=== PATIENT | female | born 1980 | race Caucasian/White ===

== ENCOUNTER 2021-03-20 07:17 | Outpatient (REF) | payer OTHER, SELFPAY ==
--- NOTE | ~2021-03-20 | XR_ITS ---
EXAMINATION: XR ABDOMEN KUB CLINICAL INDICATION: Calculus of kidney with calculus of the ureter. COMPARISON: None TECHNIQUE: AP view of the abdomen. FINDINGS: There is moderate stool seen in colon without distention. There are punctate 4 mm radiopaque calcification in the midpole right kidney suspected. No additional radiopaque density seen. There is no organomegaly. The bones are unremarkable XR/XR KUB IMPRESSION: Suspect 4 mm radiopaque calculi overlying the midpole right kidney. Mild constipation.
== END 2021-03-20 07:18 | disposition home or self-care (01) ==
LOC: HO.XRAY 07:17
PROVIDERS: PCP Family Medicine; Visit Provider Urology
DX: N20.2 Calculus of kidney with calculus of ureter (principal)
CPT/HCPCS: 74018

== ENCOUNTER 2021-04-27 08:00 | Outpatient (REF) | payer OTHER, SELFPAY ==
[2021-04-27 08:37] LABS: MANUAL DIFF FLAG NO
[2021-04-27 08:40] LABS: Basophils Absolute Auto 0.1 X10*3/uL (0.0-0.2); Basophils Percent Auto 0.9 % (0-2); Eosinophils Absolute Auto 0.2 X10*3/uL (0.0-0.4); Eosinophils Percent Auto 3.2 % (0-4); Hematocrit 40.3 % (37-47); Hemoglobin 13.4 g/dl (12.0-16.0); Imm Gran Abs Auto 0.01 X10*3/uL (0.00-0.03); Imm Gran Pct Auto 0.2 % (0.0-0.4); Lymphocytes Absolute Auto 1.9 X10*3/uL (1.2-4.9); Mean Corpuscular HGB Conc 33.3 g/dl (31.0-35.0); Mean Corpuscular Hemoglobin 28.4 pg (27.0-33.0); Mean Corpuscular Volume 85.4 fL (80-98); Mean Platelet Volume 9.3 fL (9.4-12.3); Monocytes Absolute Auto 0.4 X10*3/uL (0.1-1.2); Monocytes Percent Auto 6.9 % (2-11); Neutrophils Absolute Auto 3.2 X10*3/uL (2.0-8.3); Neutrophils Percent Auto 55.8 % (45-73); Platelet Count 257 X10*3/uL (160-400); Red Blood Count 4.72 X10*6/uL (4.20-5.50); Red Cell Distribution Width 12.2 % (11.0-16.0); White Blood Count 5.7 X10*3/uL (4.8-10.8)
[2021-04-27 08:53] LABS: Glucose Urine UA NEG (NEG); Leukocyte Esterase Urine 1+ (NEG); Nitrite Urine NEG (NEG); Specific Gravity - Urine 1.025 (1.005-1.025); Urine Blood TRACE (NEG); Urine Ketones NEG (NEG); Urine Protein NEG (NEG-TRACE)
[2021-04-27 08:57] LABS: Alanine Aminotransferase 13 U/L (0-31); Albumin Level 4.1 g/dL (3.5-5.0); Alkaline Phosphatase 93 U/L (39-117); Anion Gap 12 (12-20); Aspartate Amino Transferase 14 U/L (5-31); Bilirubin Total 0.6 mg/dL (0.0-1.0); Blood Urea Nitrogen 8 mg/dL (9-16); Calcium 9.6 mg/dL (8.4-10.2); Carbon Dioxide 25 mmol/L (22-29); Chloride 107 mmol/L (96-108); Cholesterol 158 mg/dL; Estimated Glomerular Filt Rate > 60; Glucose Fasting 104 mg/dL (60-99); HDL Cholesterol 40 mg/dL; LDL Cholesterol Calculated 105 mg/dl; Potassium 4.2 mmol/L (3.3-5.1); Sodium 140 mmol/L (135-145); Total Protein 7.1 g/dL (6.5-8.0); Triglycerides 68 mg/dL
[2021-04-27 08:58] LABS: Appearance Urine HAZY; Color Urine YELLOW
[2021-04-27 09:20] LABS: Bacteria Urine 2+ /LPF; RBC Urine 0-2 /HPF (0); Squamous Epithelial Cell Urine 2+ /LPF
== END 2021-04-27 08:01 | disposition home or self-care (01) ==
LOC: HO.LAB 08:00
PROVIDERS: PCP Family Medicine; Visit Provider Family Medicine
DX: Z00.00 Encounter for general adult medical examination without abnormal findings (principal)
CPT/HCPCS: 36415; 80053; 80061; 81001; 84443; 85025

== ENCOUNTER 2022-08-03 12:57 | Outpatient (REF) | payer OTHER, SELFPAY ==
--- NOTE | ~2022-08-03 | US_ITS ---
EXAMINATION: US RETROPERITONEAL LIMITED (RENAL ONLY) CLINICAL INFORMATION: Calculus of kidney. COMPARISON: X-ray abdomen KUB 03/20/2021. Ultrasound retroperitoneal limited (renal only) 03/13/2021. X-ray abdomen KUB 12/30/2019. CT abdomen and pelvis without contrast 11/04/2019. Ultrasound retroperitoneal complete (renal) 02/08/2015. TECHNIQUE: Real-time imaging of the kidneys. FINDINGS: RIGHT KIDNEY: 10.0 x 4.7 x 5.3 cm (SAG x AP x TRV). The kidney is normal in size, contour, and echogenicity. Renal cortical thickness is normal. No hydronephrosis. There is anechoic cyst in midpole measuring 1.0 x 0.9 x 1.0 cm and a small echogenic, probable stone without caliectasis in lower pole measuring 0.3 x 0.2 x 0.4 cm. LEFT KIDNEY: 10.6 x 4.3 x 4.9 cm (SAG x AP x TRV). The kidney is normal in size, contour, and echogenicity. Renal cortical thickness is normal. No calculi or focal parenchymal lesions. No hydronephrosis. US/US renal BI IMPRESSION: Nonobstructive echogenic stone lower pole right kidney. Small anechoic cyst midpole right kidney. The left kidney is unremarkable.
== END 2022-08-03 12:58 | disposition home or self-care (01) ==
LOC: HO.US 12:57
PROVIDERS: Visit Provider Physician Assistant Medical
DX: N20.0 Calculus of kidney (principal)
CPT/HCPCS: 76775

== ENCOUNTER 2024-06-05 09:59 | Outpatient (AMB) | payer OTHER, SELFPAY ==
--- NOTE | 2024-06-05 09:51 | A.OFFPC_ITS ---
Vital Signs 06/05/24 10:07 Height 4 ft 10.66 in Weight 177 lb 4 oz BMI 36.2 BP 104/80 Blood Pressure Location Lt brachial Position Sitting Respiration 14 Pulse 98 Pulse Source Pulse Oximeter Temp 97.7 F Temp Source Oral Pulse Oximetry (%) 96 Oxygen Delivery Method Room Air Intake Visit Reasons: Establish Care Intake Note: New patient visit. Was covid positive 9 days ago. 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 Is last menstrual period known: Yes Last menstrual period: 05/15/24 Allergies No Known Allergies [No Known Allergies*] Allergy (Verified 06/05/24 10:49) Medication List - Last Reconciled 06/05/24 by NITHYA Hughes- No Known Home Meds Tobacco use date assessed: 06/05/24 Dental Screening Dental Screen Date: 06/05/24 Did you have a dental visit in the last 12 months?: No Did you have a dental problem in the last 6 months where you did not have access to dental care?: No Was dental information given to patient?: Patient declined HPI HPI Comments History of Present Illness Details 43 y/o F with Kidney Stones, prediabetes , obesity, PCOS SurgHx: Lithotripsy November 2019. FHx: Dad CAD, AAA, Mom CAD, HTN, PreDM.. Dad's side: Skin CA. pAunt: Breast Ca,. Uncle Prostate Ca SocHx: Nonsmoiker, EtOH None, No Drugs. , no kids. 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 Health Maintenance: Tdap Mammo declined @ this time 2019 Specialists: Uro - Dr Elmore Here to est care Coming for [facility] No records yet Today she wishes to discuss her weight. Reports that she has been chronically overweight, worse over the last few years. Tries to maintain a healthy diet. Admits to not exercising much. However is frustrated. She was also diagnosed recently with PCOS by her primary care. She has never been . She was followed by a OBGYN in the past at [facility]. The last visit was in about 2021. It was for routine obstetrician/gynecologist care and not for PCOS management. She has no interest in starting a GLP-1. Rather she is interested in other options to help her lose weight. In regards to childbearing, she has not ruled out having a child. She is age 43, she has never had a mammogram. She would like to hold off until age 46 given excessive exposure to radiation due to recurrent renal stones. Wonders if there is any dietary recommendations above which is currently doing for her recurrent calcium oxalate stones. Exam Awake alert oriented, no acute distress Regular rate and rhythm Lung sounds clear to auscultation Mood & affect appropriate Plan Refer to gyn physician to evaluate a diagnosis of PCOS, to perform a clinical breast exam given that she wants to defer mammogram until age 46, for routine Women's Health screening as well as to discuss infertility concerns. Refer to nutrition to help with dietary counseling to aid in weight loss. Reminded that if she has a diagnosed with PCOS weight loss may be challenging. Check routine screening labs today. In regards to her kidney stones, encouraged liberal hydration, avoidance of high oxalate foods. Return to the office in a few weeks for complete physical exam, sooner as needed Labs today show a normal CBC, normal electrolytes, normal renal function, normal fasting glucose, normal iron profile, normal LFTs, LDL 116, HDL 38, total cholesterol 173, triglycerides 98, TSH normal, normal urine microalbumin creatinine ratio, hemoglobin A1c and vitamin-D pending This note is constructed using voice recognition software. While every effort has been made to ensure accuracy in physicist astrophysics, still errors may have been included Sometimes, these errors may affect the content or meaning of the given sentence . Total time spent caring for the patient today was 40 minutes. This includes time spent before the visit reviewing the chart, time spent during the visit, and time spent after the visit on documentation [facility] Medical History (Updated 06/06/24 @ 14:35 by Cleo Santos [facility]) Kidney stones Family History (Updated 06/05/24 @ 10:27 by Gita Rodarte CMA) Family/Other Mental health disorder Family/Other Substance abuse Mother HTN (hypertension) High cholesterol Cardiovascular disease Father Cardiovascular disease Maternal Grandmother Cardiovascular disease Maternal Grandfather Alcoholism Social History (Updated 06/05/24 @ 09:53 by Gita Rodarte CMA) Housing: Apartment Patient Tobacco Use Status: Never used Tobacco e-Cigarette/Vaping Use: Never Used Second Hand Smoke Exposure: No service: No Current occupational status: employed 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 1. Little interest or pleasure in doing things: not at all 2. Feeling down, depressed, or hopeless: not at all 3. Trouble falling or staying asleep, or sleeping too much: not at all 4. Feeling tired or having little energy: several days 5. Poor appetite or overeating: not at all 6. Feeling bad about yourself - or that you are a failure or have let yourself or your family down: not at all 7. Trouble concentrating on things, such as reading the newspaper or watching te levision: not at all 8. Moving or speaking so slowly that other people could have noticed. Or the opposite - being so fidgety or restless that you have been moving around a lot more than usual: not at all 9. Thoughts that you would be better off or of hurting yourself in some way: not at all Total score: 1 Depression Screening Interpretation: Negative Depression Screening Done: Yes 97504 - PHQ-9 Billing: Yes Source: Developed by Drs. Kevin Flores, Aliyah Ruvalcaba, Jose Eng and colleagues, with an educational aleida from [employer]. Thrive Questionnaire Date Thrive assessed: 06/05/24 I am a: Patient What is your living situation today?: I have a steady place to live Within the past 12 months, did the food you bought not last and you didn't have the money to get more?: Never true Within the past 12 months, did you worry whether your food would run out before you got money to buy more?: Never true Do you have trouble paying for medicines?: No Do you have trouble getting transportation to medical appointments?: No Do you have trouble paying your heating and electricity bill?: No Do you have trouble taking care of your child, family member or friend?: No Do you have trouble with day-to-day activities such as bathing, preparing meals, shopping, managing finances, etc.?: No Are you currently unemployed and looking for a job?: No Are you interested in more education?: No Please select the resources that you would like help with: None Currently or been in a relationship where the following occur: No concerns reported THRIVE Score: 0 AUDIT C Alcohol Use Questionnaire (AUDIT-C) 1. How often do you have a drink containing alcohol?: Never 3. How often do you have six or more drinks on one occasion?: Never Total Score: 0 Score Reviewed/Action Taken: Yes NANCY-7 AMB Questionnaire NANCY-7 Date NANCY - 7 assessed: 06/05/24 Feeling nervous, anxious, or on edge: 0 = Not at all Not being able to stop or control worryin = Not at all Worrying too much about different things: 0 = Not at all Trouble relaxin = Not at all Being so restless that it is hard to sit still: 0 = Not at all Becoming easily annoyed or irritable: 0 = Not at all Feeling afraid as if something awful might happen: 0 = Not at all Total NANCY-7 score (0-4 normal; 5-9 mild; 10-14 moderate; 15-21 severe): 0 Source: Developed by Drs. Kevin Flores, Aliyah Ruvalcaba, Jose Eng and colleagues, with an educational aleida from [employer]. NANCY-7 Assessment Billing NANCY-7 Assessment Tool: NANCY-7 Assessment 23598 Physical exam (Primary Care) Vital Signs: Last Vital Signs Temp 97.7 F 06/05/24 10:07 Pulse 98 06/05/24 10:07 Resp 14 06/05/24 10:07 BP 104/80 06/05/24 10:07 Pulse Ox 96 06/05/24 10:07 Oxygen Delivery Method Room Air 06/05/24 10:07 BMI result Body Mass Index 36.2 BMI Assessment/Plan discussion: High BMI High, discussed plan: lifestyle Tobacco/Smoking Status: Tobacco use Status Tobacco use date assessed 06/05/24 06/05/24 09:53 Patient Tobacco Use Status Never used Tobacco 06/05/24 09:53 e-Cigarette/Vaping Use Never Used 06/05/24 09:53 Depression Screening Interpretation: Negative Thrive Assessment: Date of Thrive Assessment Date Thrive assessed 06/05/24 06/05/24 10:29 Currently or been in a relationship where the following occur: No concerns reported Assessment and Plan Assessment & Plan (1) PCOS (polycystic ovarian syndrome): Code(s): E28.2 - Polycystic ovarian syndrome (2) Screening for cervical cancer: Code(s): Z12.4 - Encounter for screening for malignant neoplasm of cervix (3) Screening breast examination: Code(s): Z12.39 - Encounter for other screening for malignant neoplasm of breast (4) Infertility management: Code(s): Z31.9 - Encounter for procreative management, unspecified (5) Class 2 obesity with body mass index (BMI) of 36.0 to 36.9 in adult: Code(s): E66.9 - Obesity, unspecified; Z68.36 - Body mass index [BMI] 36.0-36.9, adult Qualifiers: Obesity type: due to excess calories Serious obesity comorbidity presence: without serious comorbidity Qualified Code(s): E66.09 - Other obesity due to excess calories; Z68.36 - Body mass index [BMI] 36.0-36.9, adult (6) Recurrent kidney stones: Comment: calcium oxalate Code(s): N20.0 - Calculus of kidney (7) Laboratory exam ordered as part of routine general medical examination: Code(s): Z00.00 - Encounter for general adult medical examination without abnormal findings Orders: Orders Comprehensive [place]. Panel Fast 06/05/24 Z00.00 - Encounter for general adult medical examination without abnormal findings Hemoglobin A1c 06/05/24 Z00.00 - Encounter for general adult medical examination without abnormal findings TSH reflex Free T4 06/05/24 Z00.00 - Encounter for general adult medical examination without abnormal findings Complete Blood Count no Diff 06/05/24 Z00.00 - Encounter for general adult medical examination without abnormal findings Microalbumin, Random (w Creat) 06/05/24 Z00.00 - Encounter for general adult medical examination without abnormal findings Lipid Panel 06/05/24 Z00.00 - Encounter for general adult medical examination without abnormal findings Vitamin D 1,25 dihydroxy 06/05/24 Z00.00 - Encounter for general adult medical examination without abnormal findings IRON PROFILE 06/05/24 Z00.00 - Encounter for general adult medical examination without abnormal findings Referrals JANITOR AND CLEANER Referral E28.2 - Polycystic ovarian syndrome, Z12.39 - Encounter for other screening for malignant neoplasm of breast, Z12.4 - Encounter for screening for malignant neoplasm of cervix, Z31.9 - Encounter for procreative management, unspecified Chronic Manager Nutrition Referral E66.9 - Obesity, unspecified Patient Instructions: Walk-In Care (Urgent Care): We Make it Easy Walk-in for urgent medical issues such as: ? Seasonal Allergies ? Insect Bites ? Cough ? Diarrhea ? Acute Asthma Attacks ? Back, Knee or Joint Pain ? Ear Infection ? Fever without a Rash ? Headaches ? Nausea ? Ozone Eye, Rash or Skin Irritation ? Sore Throat ? Sports Physicals ? Vomiting Most insurances are accepted. Patients do not need to be part of the [facility] to seek care at the walk-in clinic. Locations [facility] , [place] [address] ? [phone] [facility] Walk-In Care in [place] provides services to ages 18 and over. Open Saturday-Saturday: 8 a.m. to 5 p.m. and Saturday: 9 a.m. to 3 p.m.* *Hours may vary due to staffing availability. To confirm Walk-In Care hours in [place], please call [phone]. [address] [place] [address] ? [phone] [facility] Walk-In Care in [place] provides services to ages 12 and over. Open Saturday-Saturday: 8 a.m. to 5 p.m. Hours may vary due to staffing availability. To confirm Walk-In Care hours in [place], please call [phone]. LABORATORY SERVICES: [facility] Lab ? Primary Location [address] [place] [address] Saturday through Saturday 6:00 AM ? 5:00 PM Saturday 7:00 AM ? 11:00 AM* [phone] The [facility] Lab is centrally located near the front entrance of the [facility] for easy outpatient access. Convenient parking is provided for outpatients. *Hours may vary due to staffing availability. To confirm Laboratory hours for any location, please call [phone]. Offsite Location For your convenience, we offer offsite laboratory draw stations at the following locations: [address] [place] [address] ? [facility] [address], [address] [place] [address] Saturday through Saturday 7:30 AM ? 1:00 PM* [phone] *Hours may vary due to staffing availability. To confirm Laboratory hours for any location, please call [phone]. [place] [address] Saturday through Saturday 6:00 AM ? 3:30 PM* Saturday 6:30 AM ? 3 PM* [phone] *Hours may vary due to staffing availability. To confirm Laboratory hours for any location, please call [phone]. [address] [facility] Saturday through Saturday 7:30 AM ? 4:00 PM* [phone] *Hours may vary due to staffing availability. To confirm Laboratory hours for any location, please call [phone] [place] [address] Saturday through 9:00 AM ? 4:00 PM* *Hours may vary due to staffing availability. To confirm Laboratory hours for any location, please call [phone]. Appointments are not necessary. Walk-ins are welcome. Like all the departments throughout the [facility], our Lab undergoes frequent reviews to ensure the quality and accuracy of test results, and our staff takes special pride in its status as a nationally accredited facility. Patient Portal: ONE PATIENT. ONE RECORD. BETTER CARE. [facility] has a fully integrated, cutting-e ELIKE mobile electronic health information system that has revolutionized the way we care for our patients and manage our organization. This system improves communication and coordination enabling us to provide safe, higher-quality care, and an overall positive experience for staff and patients. Our first priority, as always, is to deliver the highest quality care possible. The system is running in the background supporting that priority. This portal is for all [facility] services and practices. If you are experiencing any technical difficulties with enrolling or logging into the Patient Portal please complete the [facility] Patient Portal Technical Support Form. [facility] now offers a new secure on-line interactive tool for patients to review their health information ? ?Patient Portal. This interactive web portal will enable patients and their families to take an active role in their care by providing easy, secure access to their health information via the internet. The Patient Portal provides patients with instant access to their health information, including laboratory results, medications, allergies, demographic information, visit history, and more. In addition to managing their own care, parents and health care proxies with authorized consent will appreciate the ability to access the records of those individuals for whom they provide care. Please note: if you wish to gain access (Proxy) to another patient?s portal, you will be required to come to the Medical Records Department in person at [facility]. Both the patient giving proxy access and the proxy will need to provide photo identification and complete the appropriate authorization. The Patient Portal also allows track their appointments online. The [facility] Patient Portal also saves patients time by allowing them to submit updates to their demographic and contact information prior to their visits. Portal email notifications will also alert patients to any new activity on their portal, such as test results and new appointments. In order to initially enroll in the [facility] Patient Portal, you will need to enter some required information including the following: * your [facility] Medical Record number * your personal home email address * name * date of Please note: In order to enroll in the [facility] Patient Portal, we need to have your email address on file in your electronic medical record. ?The email address needs to be specific for one person (yourself) in order for your Portal enrollment to be successful. ?You can update your email address in person with our Registration staff when you are registering for a hospital visit. ?Otherwise, you will need to come to the Health Information Management (Medical Records) Department at [facility]. ?We are open from Saturday ? Saturday from 7:30 a.m. ? 4:30 p.m. ?You will be required to present a photo id. Once you have successfully enrolled in the Patient Portal, you will receive a one-time user id and password for the Portal, sent to your email address. ?This will allow you to log into the Patient Portal within 99 hrs and reset your own logon id and password, and define personal security questions. ?Once your permanent login and password have been set, you can log into the [facility] Patient Portal at any time via the blue button above or from the Portal Logon button on any page of the [facility] website. [facility] encourage all of our patients to enroll in Patient Portal as it presents a valuable opportunity for patients and their families to actively participate in their care and stay healthy Welcome to [facility]. ?We look forward to working with you. Review Patient declined Mammogram: 06/06/24 Coding Level of Care Code New Pt Level 4 (86991) Diagnoses PCOS (polycystic ovarian syndrome) E28.2 Screening for cervical cancer Z12.4 Screening breast examination Z12.39 Infertility management Z31.9 Class 2 obesity due to excess calories without serious comorbidity with body mass index (BMI) of 36.0 to 36.9 in adult E66.09; Z68.36 Obesity type: due to excess calories Serious obesity comorbidity presence: without serious comorbidity Recurrent kidney stones N20.0 Laboratory exam ordered as part of routine general medical examination Z00.00 Additional Codes NANCY-7 Assessment Billing - NANCY-7 Assessment Tool: NANCY-7 Assessment 31063 ([id number])
[2024-06-05 10:07] VITALS: BP 104/80; PULSE 98; RESP 14; TEMP 36.5; O2SAT 96; BMI 36.2
== END 2024-06-05 11:17 | disposition home or self-care (01) ==
PROVIDERS: PCP Family Medicine; Visit Provider Nurse Practitioner Family
DX: E28.2 Polycystic ovarian syndrome (principal); N20.0 Calculus of kidney; E66.09 Other obesity due to excess calories; Z68.36 Body mass index [BMI] 36.0-36.9, adult; Z31.9 Encounter for procreative management, unspecified; Z12.39 Encounter for other screening for malignant neoplasm of breast
CPT/HCPCS: 99204

== ENCOUNTER 2024-06-05 11:31 | Outpatient (REF) | payer OTHER, SELFPAY ==
[2024-06-05 14:27] LABS: Hematocrit 42.1 % (37.0-47.0); Hemoglobin 14.4 g/dl (12.0-16.0); Mean Corpuscular HGB Conc 34.2 g/dl (31.0-35.0); Mean Corpuscular Hemoglobin 29.3 pg (27.0-33.0); Mean Corpuscular Volume 85.6 fL (80.0-98.0); Mean Platelet Volume 9.3 fL (9.4-12.3); Platelet Count 263 X10*3/uL (160-400); Red Blood Count 4.92 X10*6/uL (4.20-5.50); Red Cell Distribution Width 12.4 % (11.0-16.0); White Blood Count 7.1 X10*3/uL (4.8-10.8)
[2024-06-05 14:57] LABS: Creatinine Urine 55.08 mg/dL; Microalbumin Urine < 5.0 mg/L
[2024-06-05 15:18] LABS: Alanine Aminotransferase 24 U/L (0-31); Albumin Level 4.5 g/dL (3.5-5.0); Alkaline Phosphatase 76 U/L (39-117); Anion Gap 12 (12-20); Aspartate Amino Transferase 16 U/L (5-31); Bilirubin Total 0.4 mg/dL (0.0-1.0); Blood Urea Nitrogen 10 mg/dL (9-16); Calcium 10.1 mg/dL (8.4-10.2); Carbon Dioxide 25 mmol/L (22-29); Chloride 106 mmol/L (96-108); Cholesterol 173 mg/dL (<200); Estimated Glomerular Filt Rate > 60; Glucose Fasting 95 mg/dL (60-99); HDL Cholesterol 38 mg/dL (>40); Iron 83 mcg/dL (30-160); LDL Cholesterol Calculated 116 mg/dL (<100); Percent Iron Saturation 27 % (15-50); Potassium 3.9 mmol/L (3.3-5.1); Sodium 139 mmol/L (135-145); Total Iron Binding Capacity 310 mcg/dL (228-428); Total Protein 7.9 g/dL (6.5-8.0); Triglycerides 98 mg/dL (<150); Unsaturated Iron Binding 227 ug/dL
[2024-06-05 15:26] LABS: TSH reflex Free T4 1.71 uIU/mL (0.32-4.0)
[2024-06-05 16:58] LABS: Estimated Average Glucose 105 mg/dL; Hemoglobin A1C 125.2479 umol/L; Hemoglobin A1c % 5.3 % (<6.0)
[2024-06-11 12:49] LABS: VITAMIN D (1,25 OH) D3 56 pg/mL; Vit D (1,25-Dihydroxy) Total 56 pg/mL (18-72); Vitamin D (1,25 OH) D2 <8 pg/mL
== END 2024-06-05 11:32 | disposition home or self-care (01) ==
LOC: HO.WFDLDS 11:31
PROVIDERS: Visit Provider Nurse Practitioner Family
DX: Z00.00 Encounter for general adult medical examination without abnormal findings (principal); Z13.1 Encounter for screening for diabetes mellitus
CPT/HCPCS: 36415; 80053; 80061; 82570; 82652; 83036; 83540; 84443; 85027

== ENCOUNTER 2024-06-23 08:52 | Outpatient (AMB) | payer OTHER, SELFPAY ==
--- NOTE | 2024-06-23 08:57 | A.OFFPC_ITS ---
Vital Signs 06/23/24 09:00 Height 4 ft 11 in Weight 182 lb BMI 36.8 BP 112/66 Blood Pressure Location Lt brachial Position Sitting Respiration 14 Pulse 94 Pulse Source Pulse Oximeter Pulse Oximetry (%) 95 Oxygen Delivery Method Room Air Intake Visit Reasons: 2-4 weeks fu labs.?CPE 30 MIN Intake Note: follow up on labs Allergies No Known Allergies [No Known Allergies*] Allergy (Verified 06/23/24 09:17) Medication List - Last Reconciled 06/23/24 by ALENA Hughes No Known Home Meds Tobacco use date assessed: 06/05/24 Dental Screening Dental Screen Date: 06/05/24 HPI HPI Comments History of Present Illness Details 43 y/o F with Kidney Stones, prediabetes , obesity, PCOS SurgHx: Lithotripsy November 2019. FHx: Dad CAD, AAA, Mom CAD, HTN, PreDM.. Dad's side: Skin CA. pAunt: Breast Ca,. Uncle Prostate Ca SocHx: Nonsmoiker, EtOH None, No Drugs. , no kids. 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 In Masters program for [employer]. Health Maintenance: Tdap 2015 Mammo declined @ this time Pap 2020 Specialists: Uro - Dr Elmore SUSTAINABILITY COACH Nutrition Here today for CPE. Dad with AAA along w/ several aunts/uncles on paternal side. Paternal grandmother with AAA w/ rupture. Will be est care with 7 sisters for SUSTAINABILITY COACH/Breast care. Appt next Saturday w/ Nutrition. Taking 5000 IU Vit D; most recent levels are WNL Sleep: 7 hours/night. Denies snoring or witnessed apnea. Wakes feeling rested. Optho: Wears glasses, last eye exam Spring 2023. Annual visits. Skin: Was being seen [id number] in the past d/t family hx of skin cancer on Paternal side, [facility]. The last time was about 10 years ago. Denies any worrisome skin changes as of this time. Wears sunscreen. Dental: has to find a dentist. Would like to find someone she is comfortable with. Does not like the dentist. GI: Normal elimination. Mood: good for the most part. + stressors in the day to day; managing . Labs 05/2024 show a normal CBC, normal electrolytes, normal renal function, normal fasting glucose, normal iron profile, normal LFTs, LDL 116, HDL 38, total cholesterol 173, triglycerides 98, TSH normal, normal urine microalbumin creati nine ratio, hemoglobin A1c 5.3%, vitamin-D normal Plan: Find out if insurance will cover AAA survellience given family hx. If so, send me portal message and i can order. Reduce Vitamin D from 5000 to 2000 IU Daily RTO 1 year for CPE, sooner PRN PFSH Medical History (Updated 06/23/24 @ 09:14 by Cleo Santos [facility]) Kidney stones Family History (Updated 06/05/24 @ 10:27 by Gita Rodarte [facility]) Family/Other Mental health disorder Family/Other Substance abuse Mother HTN (hypertension) High cholesterol Cardiovascular disease Father Cardiovascular disease Maternal Grandmother Cardiovascular disease Maternal Grandfather Alcoholism Social History (Updated 06/05/24 @ 09:53 by Gita Rodarte CMA) Housing: Apartment Patient Tobacco Use Status: Never used Tobacco e-Cigarette/Vaping Use: Never Used Second Hand Smoke Exposure: No service: No Current occupational status: employed 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 Kevin Flores, Aliyah Ruvalcaba, Jose nEg and colleagues, with an educational aleida from [employer] (formerly [employer]). Review of Systems Const Details: Constitutional: Denies fever. Skin: Denies rash. Eye: Denies eye pain. ENMT: Denies sore throat and nasal congestion. Respiratory: Denies shortness of breath and cough. Gastrointestinal: Denies nausea, vomiting or abdominal pain. Cardiovascular: Denies chest pain and syncope. Genitourinary: Denies dysuria. Musculoskeletal: Denies back pain and extremity pain. Neurologic: Denies headaches, confusion, and weakness. Psychiatric: Denies suicidal thoughts and substance abuse. Allergy/ Immunologic: Denies impaired immunity. Physical exam (Primary Care) Vital Signs: Last Vital Signs Pulse 94 06/23/24 09:00 Resp 14 06/23/24 09:00 BP 112/66 06/23/24 09:00 Pulse Ox 95 06/23/24 09:00 Oxygen Delivery Method Room Air 06/23/24 09:00 BMI result Body Mass Index 36.8 Tobacco/Smoking Status: Tobacco use Status Tobacco use date assessed 06/05/24 06/23/24 08:59 Patient Tobacco Use Status Never used Tobacco 06/23/24 08:59 e-Cigarette/Vaping Use Never Used 06/23/24 08:59 Thrive Assessment: Date of Thrive Assessment Date Thrive assessed 06/05/24 06/23/24 08:59 Const Other: General: Well developed, well nourished, in no acute distress. Appears stated age. Head: Normocephalic, atraumatic. Eyes: Pupils are equal, round and reactive to light and accommodation. Conjunctivae are clear. Vision grossly normal. Ears: TMs clear AU, EACS WNL Nose: Patent, without discharge. Mouth: There are no ulcers or lesions noted. No inflammation, no post nasal drip, no plaques nor exudates. Neck: Supple, no adenopathy or thyromegaly. Lungs: Clear to auscultation bilaterally. No rales, rhonchi or wheeze noted. Good air flow in all de luna. Heart: Regular rate and rhythm. No murmurs, click, rubs or gallops are noted. Abdomen: Bowel sounds present in all quadrants. The abdomen is soft, nontender, with no masses or organomegaly noted. No hernias are noted. Musculoskeletal: Joints are nontender, without swelling, redness, or effusions. Range of motion is observed to be normal. Pulses: Peripheral pulses are equal and palpable bilaterally. Extremities: No clubbing, cyanosis nor edema is noted. Neurologic: Gait and station normal. Cranial Nerves 2-12 intact. Motor strength grossly symmetrical and intact. No sensory loss. Balance normal. Skin: No rashes, ulcers, or lesions noted. Turgor is good. Skin color is good. Hair and nails are without abnormalities. Psych: Normal eye contact, affect and mood appropriate, and normal interactions. Patient is alert and appropriate to context. Assessment and Plan Assessment & Plan (1) Encounter for general adult medical examination without abnormal findings: Code(s): Z00.00 - Encounter for general adult medical examination without abnormal findings (2) Family history of abdominal aortic aneurysm: Code(s): Z82.49 - Family history of ischemic heart disease and other diseases of the circulatory system Patient Instructions: Health screenings for women You should visit your health care provider from time to time, even if you are healthy. The purpose of these visits is to: Screen for medical issues Assess your risk for future medical problems Encourage a healthy lifestyle Update vaccinations and other preventive care services Help you get to know your provider in case of an illness Information Even if you feel fine, you should still see your provider for regular checkups. These visits can help you avoid problems in the future. For example, the only way to find out if you have high blood pressure is to have it checked regularly. High blood sugar and high cholesterol levels also may not have any symptoms in the early stages. A simple blood test can check for these conditions. There are specific times when you should see your provider or receive specific health screenings. The [place] Preventive Services Task Force publishes a list of recommended screenings. Below are screening guidelines for women ages 18 to 39. BLOOD PRESSURE SCREENING Your blood pressure should be checked at least once every 3 to 5 years if: Your blood pressure is in the normal range (top number less than 120 mm Hg and bottom number less than 80 mm Hg) You don't have risk factors for high blood pressure Ask your provider if you need your blood pressure checked more often if: The top number is 120 to 129 mm Hg or the bottom number is 70 to 79 mm Hg You have diabetes, heart disease, kidney problems, are overweight, or have certain other health conditions You have a first-degree relative with high blood pressure You are Black You had high blood pressure during a If the top number is 130 mm Hg or greater or the bottom number is 80 mm Hg or greater, this is considered stage 1 hypertension. Schedule an appointment with your provider to learn how you can reduce your blood pressure. Watch for blood pressure screenings in your area. Ask your provider if you can stop in to have your blood pressure checked. BREAST CANCER SCREENING Experts do not agree about the benefits of breast self-exams in finding breast cancer or saving lives. Talk to your provider about what is best for you. A screening mammogram is not recommended for most women under age 40. Your provider may discuss and recommend mammograms, MRI scans, or ultrasounds if you have an increased risk for breast cancer, such as: A mother or sister who had breast cancer at a young age (most often starting screening earlier than the age the close relative was diagnosed) You carry a high-risk genetic marker CERVICAL CANCER SCREENING Cervical cancer screening should start at age 21 years unless your provider advises otherwise. After the first test: Women ages 21 through 29 should have a Pap test every 3 years. Exoprts do not agree on whether HPV testing is recommended for this age group. Women ages 30 through 65 should be screened with either a Pap test every 3 years or the HPV test every 5 years or both tests every 5 years (called cotesting ). Women who have been treated for precancer (cervical dysplasia) should continue to have Pap tests for 20 years after treatment or until age 65, whichever is longer. If you have had your uterus and cervix removed (total hysterectomy), and you have not been diagnosed with cervical cancer or precancer (high grade cervical neoplasia), you do not need cervical cancer screening. CHOLESTEROL SCREENING Cholesterol screening should begin at: Age 45 for women with no known risk factors for coronary heart disease Age 20 for women with known risk factors for coronary heart disease Repeat cholesterol screening should take place: Every 5 years for women with normal cholesterol levels More often if changes occur in lifestyle (including weight gain and diet) More often if you have diabetes, heart disease, kidney problems, or certain other conditions DIABETES SCREENING You should be screened for diabetes starting at age 35 and then repeated every 3 years if you have no risk factors for diabetes. Screening may need to start earlier and be repeated more often if you have other risk factors for diabetes, such as: You have a first degree relative with diabetes. You are overweight or have obesity. You have high blood pressure, prediabetes, or a history of heart disease. Screening for diabetes should be done if you are planning to become and you are overweight and have other risk factors such as high blood pressure. DENTAL EXAM Go to the dentist once or twice every year for an exam and cleaning. Your dentist will evaluate if you need more frequent visits. EYE EXAM Have an eye exam every 5 to 10 years before age 40. If you have vision problems, have an eye exam every 2 years or more often if recommended by your provider. You should have an eye exam that includes an examination of your retina (back of your eye) at least every year if you have diabetes. IMMUNIZATIONS Commonly needed vaccines include: Flu shot: get one every year. COVID-19 vaccine: ask your provider what is best for you. Tetanus-diphtheria and acellular pertussis (Tdap) vaccine: have one at or after age 19 as one of your tetanus-diphtheria vaccines if you did not receive it as an adolescent. Tetanus-diphtheria: have a booster (or Tdap) every 10 years. Varicella vaccine: receive 2 doses if you never had chickenpox or the varicella vaccine. Hepatitis B vaccine: receive 2, 3, or 4 doses, depending on your exact circumstances. Measles, mumps, and rubella (MMR) vaccine: receive 1 to 2 doses if you are not already immune to MMR. Your provider can tell you if you are immune. Ask your provider about the human papillomavirus (HPV) vaccine if: You have not received the HPV vaccine in the past You have not completed the full vaccine series (you should catch up on this shot) Ask your provider if you should receive other immunizations if you have certain health problems that increase your risk for some diseases such as pneumonia. INFECTIOUS DISEASE SCREENING Women who are sexually active should be screened for chlamydia and gonorrhea up until age 25. Women 25 years and older should be screened for chlamydia and gonorrhea if at high risk. Screening for hepatitis C: All adults ages 18 to 79 should get a one-time test for hepatitis C. people should be screened at every . Screening for human immunodeficiency virus (HIV): All people ages 15 to 65 should get a one-time test for HIV. Depending on your lifestyle and medical history, you may also need to be screened for infections such as syphilis and HIV, as well as other infections. PHYSICAL EXAM All adults should visit their provider from time to time, even if they are healthy. The purpose of these visits is to: Screen for disease Assess your risk of future medical problems Encourage a healthy lifestyle Update your vaccinations and other preventive care services Maintain a relationship with a provider in case of an illness Your height, weight, and BMI should be checked at every exam. During your exam, your provider may ask you about: Depression and anxiety Diet and exercise Alcohol and tobacco use Safety issues, such as using seat belts, smoke detectors, and intimate partner violence Your medicines and risk for interactions SKIN SELF-EXAM Your provider may check your skin for signs of skin cancer, especially if you're at high risk, such as if you: Have had skin cancer before Have close relatives with skin cancer Have a weakened immune system OTHER SCREENING Talk with your provider about colon cancer screening if you have a strong family history of colon cancer or polyps, or if you have had inflammatory bowel disease or polyps yourself. Routine bone density screening of women under 40 is not recommended. Coding Level of Care Code Est Pt Prev Care 40-64y(94154) Diagnoses Encounter for general adult medical examination without abnormal findings Z00.00 Family history of abdominal aortic aneurysm Z82.49
[2024-06-23 09:00] VITALS: BP 112/66; PULSE 94; RESP 14; O2SAT 95; BMI 36.8
== END 2024-06-23 09:34 | disposition home or self-care (01) ==
PROVIDERS: PCP Family Medicine; Visit Provider Nurse Practitioner Family
DX: Z00.00 Encounter for general adult medical examination without abnormal findings (principal); Z82.49 Family history of ischemic heart disease and other diseases of the circulatory system

== ENCOUNTER → 2024-06-23 08:52 | Outpatient (BNVA) | payer OTHER, SELFPAY | PROVIDERS: PCP Family Medicine; Visit Provider Nurse Practitioner Family | DX: Z00.00 Encounter for general adult medical examination without abnormal findings (principal); Z82.49 Family history of ischemic heart disease and other diseases of the circulatory system ==

== ENCOUNTER 2024-06-30 14:18 | Outpatient (AMB) | payer OTHER, SELFPAY ==
--- NOTE | 2024-06-30 14:21 | A.OFFVIS_ITS ---
VS Expanded 06/30/24 14:22 06/30/24 14:27 Height 4 ft 11 in 4 ft 11 in Weight 180 lb 8.937 oz 181 lb BMI 36.5 36.6 Intake Visit Reasons: Obesity/CONFIRMED Allergies No Known Allergies [No Known Allergies*] Allergy (Verified 06/23/24 09:17) Nutrition Presentation Details: Pt presents for MNT for obesity. Pt was referred by PCP food frequency: fruits: 1-2 /day fish: 2 x/wk vegetables 4 -6 x/wk starches> 20 /d beverages: water/tea (honey/milk) etoh/smoking: --- physical daily life activities No food allergies, intolerances BS Monitoring Most Recent Diabetes Results: Microalb/Creat Ratio TNP 06/05/24 Cholesterol 173 mg/dL (<200) 06/05/24 HDL Cholesterol 38 mg/dL (>40) L 06/05/24 Triglycerides 98 mg/dL (<150) 06/05/24 Creatinine 0.82 mg/dL (0.5-1.4) 06/05/24 Blood Urea Nitrogen 10 mg/dL (9-16) 06/05/24 Sodium 139 mmol/L (135-145) 06/05/24 Potassium 3.9 mmol/L (3.3-5.1) 06/05/24 Chloride 106 mmol/L (96-108) 06/05/24 Carbon Dioxide 25 mmol/L (22-29) 06/05/24 Calcium 10.1 mg/dL (8.4-10.2) 06/05/24 AST 16 U/L (5-31) 06/05/24 ALT 24 U/L (0-31) 06/05/24 Total Protein 7.9 g/dL (6.5-8.0) 06/05/24 Albumin 4.5 g/dL (3.5-5.0) 06/05/24 [id number].Jeor Equation Height: 4 ft 11 in Weight: 181 lb Resting Metabolic Rate: 1389.17 Calculated Activity Level: Sedentary Calories Needed to Maintain Weight: 1667.00 Diagnosis Nutrition problem #1: food nutri know defi As related to (etiology) #1: diagnosis As evidenced by (sign/symptom) #1: knowledge deficit of diet [facility] Medical History (Updated 06/23/24 @ 09:14 by Cleo Santos [facility]) Kidney stones Family History (Updated 06/05/24 @ 10:27 by Gita Rodarte CMA) Family/Other Mental health disorder Family/Other Substance abuse Mother HTN (hypertension) High cholesterol Cardiovascular disease Father Cardiovascular disease Maternal Grandmother Cardiovascular disease Maternal Grandfather Alcoholism Social History (Updated 06/05/24 @ 09:53 by Gita Rodarte CMA) Housing: Apartment Patient Tobacco Use Status: Never used Tobacco e-Cigarette/Vaping Use: Never Used Second Hand Smoke Exposure: No service: No Current occupational status: employed Current occupation: [employer] Current occupational exposures/hazards: No Cognitive needs: No Hearing needs: No Vision needs: Yes (glasses) Assessment & Plan Assessment & Plan (1) Class 2 obesity with body mass index (BMI) of 36.0 to 36.9 in adult: Code(s): E66.9 - Obesity, unspecified; Z68.36 - Body mass index [BMI] 36.0-36.9, adult Category: Medical Qualifiers: Obesity type: due to excess calories Serious obesity comorbidity presence: without serious comorbidity Qualified Code(s): E66.09 - Other obesity due to excess calories; Z68.36 - Body mass index [BMI] 36.0-36.9, adult Plan: Wt: 82 Kg ( 07/23 ) Est kcal needs as per MSJ: 1700 (40% carb, 30% protein/fat) Est fluid needs as per 25-30 ml/d: 2500 Est prot per day as per 1 g/kg bw: 82g Recommend fiber intake : 8-10 g per day and gradually increase to 25-28 g per day for women and 35-38 g for men or as tolerated Recommend sodium intake per day : less than 2300 mg Educated patient on: ( R = reviewed V = verbalizes understanding N/R = needs review N/A = not applicable * Food sources of carbohydrate, adequate serving sizes and its role in various health conditions: R * Differences between complex carbohydrates a simple carbohydrates, role of fiber in diet: R * Lean protein sources of foods: R * Differences between types of fats and role in diet (mono on saturated fat fatty acids, saturated fatty acids, trans fats): R V N/R * Food sources of sodium in salt and healthy modifications for heart health in kidney health: R V R/V * Vitamins and minerals: R V N/R * Healthy plate method concept: R * Physical activity: Benefits a precaution: R V N/R * Hypoglycemia protocol (rule of 15): R V N/R * Patient Instructions: Work on following healthy plate method , choosing whole grain foods Reduce total carb to 45 g of carbs at meal , 3 x/d and snack 0-20 g carb Choose water, infused water with meals or milk with snacks Coding Level of Care Code Nutr Indiv Intake (31095) Diagnoses Class 2 obesity due to excess calories without serious comorbidity with body mass index (BMI) of 36.0 to 36.9 in adult E66.09; Z68.36 Obesity type: due to excess calories Serious obesity comorbidity presence: without serious comorbidity Time Spent (min) 30
[2024-06-30 14:22] VITALS: BMI 36.5
[2024-07-08 09:16] VITALS: BMI 36.6
== END 2024-06-30 15:03 | disposition home or self-care (01) ==
PROVIDERS: PCP Family Medicine; Visit Provider Dietitian, Registered
DX: E66.09 Other obesity due to excess calories (principal); Z68.36 Body mass index [BMI] 36.0-36.9, adult

== ENCOUNTER → 2024-06-30 14:18 | Outpatient (BNVA) | payer OTHER, SELFPAY | PROVIDERS: PCP Family Medicine; Visit Provider Dietitian, Registered | DX: E66.09 Other obesity due to excess calories (principal); Z68.36 Body mass index [BMI] 36.0-36.9, adult; Z71.3 Dietary counseling and surveillance | CPT/HCPCS: 97802 ==

== ENCOUNTER 2025-03-10 07:58 | Outpatient (REF) | payer OTHER, SELFPAY ==
[2025-03-10 11:16] LABS: Influenza A PCR POSITIVE (Negative); Influenza B PCR NEGATIVE (Negative); Resp Syncy Virus RNA Qual PCR NEGATIVE (Negative); SARS COV2 PCR INHOUSE NEGATIVE (Negative)
== END 2025-03-10 07:59 | disposition home or self-care (01) ==
LOC: HO.LAB 07:58
PROVIDERS: PCP Nurse Practitioner Family; Visit Provider Physician Assistant
DX: J06.9 Acute upper respiratory infection, unspecified (principal); R09.89 Other specified symptoms and signs involving the circulatory and respiratory systems
CPT/HCPCS: 0241U

== ENCOUNTER 2025-03-10 07:58 | Outpatient (AMB) | payer OTHER, SELFPAY ==
[2025-03-10 08:05] VITALS: BP 124/82; PULSE 128; TEMP 37.1; O2SAT 95; BMI 35.8
--- NOTE | 2025-03-10 08:05 | MHC.OFFWIV ---
Intake Vital Signs 03/10/25 08:05 Height 4 ft 11 in Weight 177 lb 8 oz BMI 35.8 BP 124/82 Blood Pressure Location Rt brachial Position Sitting Pulse 128 H Pulse Source Pulse Oximeter Temp 98.7 F Temp Source Oral Pulse Oximetry (%) 95 Oxygen Delivery Method Room Air Intake Visit Reasons: EP fatigue, aches, fever Intake Note: Pt presents to the office today for c/o fatigue,fever,body aches,congestion x4 days. Patient Tobacco Use Status: Never used Tobacco Allergies No Known Allergies [No Known Allergies*] Allergy (Verified 03/10/25 08:08) HPI HPI Comments History of Present Illness Details History - The patient is a 44-year-old female presenting with symptoms of viral upper respiratory infection and dental abscess. - Viral upper respiratory infection: Symptoms began on Saturday with feeling under the weather, progressing to body aches, fatigue, congestion, and postnasal drip. - Fever reached 102.5?F, subsiding with Tylenol, but fatigue persists. - No history of asthma, COPD, or smoking. - Dehydration suspected due to high fever and insensible losses, contributing to elevated heart rate. - Dental abscess: Noticed this week, located in the lower gum, with tenderness and a prescription for amoxicillin from the pediatric dentist. Physical Exam General: Cooperative, healthy appearing, comfortable and no acute distress Orientation/consciousness: Patient oriented x3 Limitations: No limitations Head: Normal to inspection Ears: Hearing grossly normal bilaterally, external ears normal and TM's normal bilaterally Nose: Normal external nose present, Normal nares present and No nasal discharge present Face and sinus: Normal facial exam and Yes sinuses nontender Mouth: Abscess present in the mouth, normal oral and palatal mucosa present and moist mucous membranes Throat: Yes tonsils normal, Yes uvula midline. Posterior oropharynx erythema, no exudates Eyes: Appearance normal, both eyes and all related structures Neck: Normal visual inspection Respiratory: Clear to auscultation bilaterally. Normal respiratory effort, able to speak in complete sentences, no respiratory distress, not tachypneic, no tripod positioning and no use of accessory muscles Cardiovascular: tachycardic rate and regular rhythm. Normal S1 and S2 Skin: No rashes or lesions noted Neuro: Patient oriented x3 Extremities: Normal to inspection and Yes no clubbing, cyanosis or edema [facility] Medical History Kidney stones Family History Family/Other Mental health disorder Family/Other Substance abuse Mother HTN (hypertension) High cholesterol Cardiovascular disease Father Cardiovascular disease Maternal Grandmother Cardiovascular disease Maternal Grandfather Alcoholism Social History Housing: Apartment Patient Tobacco Use Status: Never used Tobacco e-Cigarette/Vaping Use: Never Used Second Hand Smoke Exposure: No service: No Current occupational status: employed 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 Current occupational exposures/hazards: No Cognitive needs: No Hearing needs: No Vision needs: Yes (glasses) Review of Systems Const All systems reviewed & are unremarkable except as noted in HPI and below Physical Exam Vital Signs: Last Vital Signs Temp 98.7 F 03/10/25 08:05 Pulse 128 H 03/10/25 08:05 BP 124/82 03/10/25 08:05 Pulse Ox 95 03/10/25 08:05 Oxygen Delivery Method Room Air 03/10/25 08:05 BMI result Body Mass Index 35.8 Assessment & Plan Assessment & Plan (1) URI, acute: Code(s): J06.9 - Acute upper respiratory infection, unspecified Plan: Pt HR sinus tach, otherwise VSS, pt well appearing and PE unremarkable. - Initiate amoxicillin for dental abscess to extend it to 10 days, she has a RX for 7 days but we will cover her starting now in case her dental abscess is the cause of her fevers, starting today to ensure infection control before the scheduled dental procedure. - HR elevated likely 2/2 dehydration with recent days of high fevers/insensible losses. Explained this to patient. Encourage increased fluid intake with electrolytes to address dehydration and monitor heart rate, advising f/u with PCP if tachycardia persists. May be a sign of infection. - Symptomatic treatment for viral infection with Tylenol and antihistamines like Xyzal or Benadryl to manage postnasal drip and congestion. - Conduct COVID-19, influenza, and RSV testing to rule out other viral infections. Patient was informed and verbally consented to the use of an ambient scribe for clinic note documentation during this visit Orders: Orders SARS-CoV2/FLU/RSV Today R09.89 - Other specified symptoms and signs involving the circulatory and respiratory systems Medications: New amoxicillin 500 mg PO Q12H 6 tabs 0RF Coding Level of Care Code Est Pt Level 3 (93787) Diagnoses URI, acute J06.9
== END 2025-03-10 08:25 | disposition home or self-care (01) ==
PROVIDERS: PCP Nurse Practitioner Family; Visit Provider Physician Assistant
DX: J06.9 Acute upper respiratory infection, unspecified (principal)

== ENCOUNTER 2025-06-23 08:24 | Outpatient (REF) | payer OTHER, SELFPAY ==
[2025-06-23 12:09] LABS: Hematocrit 41.1 % (37.0-47.0); Hemoglobin 13.9 g/dl (12.0-16.0); Mean Corpuscular HGB Conc 33.8 g/dl (31.0-35.0); Mean Corpuscular Hemoglobin 28.4 pg (27.0-33.0); Mean Corpuscular Volume 83.9 fL (80.0-98.0); NRBC Abs Auto 0.000 X10*3/uL (0.0-0.012); NRBC Pct Auto 0.0 /100WBC (0.0-0.2); Platelet Count 245 X10*3/uL (160-400); Red Blood Count 4.90 X10*6/uL (4.20-5.50); White Blood Count 7.0 X10*3/uL (4.8-10.8)
[2025-06-23 12:22] LABS: Total Hemoglobin (HGBA1C) 3637.6758 umol/L
[2025-06-23 12:27] LABS: Alanine Aminotransferase 24 U/L (0-31); Albumin Level 4.4 g/dL (3.5-5.0); Alkaline Phosphatase 85 U/L (39-117); Anion Gap 11 (12-20); Aspartate Amino Transferase 21 U/L (5-31); Blood Urea Nitrogen 10 mg/dL (9-16); Calcium 9.5 mg/dL (8.4-10.2); Carbon Dioxide 25 mmol/L (22-29); Chloride 107 mmol/L (96-108); Cholesterol 171 mg/dL (<200); Estimated Glomerular Filt Rate > 60; Folate 17.7 ng/mL (> or = 4.0); HDL Cholesterol 38 mg/dL (>40); Potassium 4.0 mmol/L (3.3-5.1); Sodium 139 mmol/L (135-145); Total Protein 7.6 g/dL (6.5-8.0); Triglycerides 131 mg/dL (<150); Vitamin B12 585 pg/mL (200-900)
== END 2025-06-23 08:25 | disposition home or self-care (01) ==
LOC: HO.WFDLDS 08:24
PROVIDERS: PCP Family Medicine; Visit Provider Nurse Practitioner Family
DX: Z00.00 Encounter for general adult medical examination without abnormal findings (principal); R73.01 Impaired fasting glucose; K21.9 Gastro-esophageal reflux disease without esophagitis; E66.09 Other obesity due to excess calories; E28.2 Polycystic ovarian syndrome; Z53.20 Procedure and treatment not carried out because of patient's decision for unspecified reasons; Z28.21 Immunization not carried out because of patient refusal; J30.89 Other allergic rhinitis; R09.82 Postnasal drip; Z92.89 Personal history of other medical treatment; Z68.36 Body mass index [BMI] 36.0-36.9, adult; Z79.899 Other long term (current) drug therapy; Z82.49 Family history of ischemic heart disease and other diseases of the circulatory system
CPT/HCPCS: 36415; 80053; 80061; 82043; 82306; 82570; 82607; 82746; 83036; 84443; 85027; 96127

== ENCOUNTER 2025-06-23 08:24 | Outpatient (AMB) | payer OTHER, SELFPAY ==
--- NOTE | 2025-06-23 08:27 | MHC.PC.OV ---
Vital Signs 06/23/25 08:34 Height 4 ft 11 in Weight 181 lb 8 oz BMI 36.7 BP 122/82 Blood Pressure Location Rt brachial Position Sitting Respiration 14 Pulse 91 Pulse Source Pulse Oximeter Temp 97.5 F Temp Source Temporal Artery Scan Pulse Oximetry (%) 97 Oxygen Delivery Method Room Air Intake Visit Reasons: 1 year CPE Intake Note: Nidia presents in the office today for her annual physical. Refused flu shot. Allergies No Known Allergies (No Known Allergies*) Allergy (Verified 06/23/25 08:45) Medication List - Last Reconciled 06/23/25 by Cleo Santos, ESCALATOR MECH[employer]IC- magnesium gluconate 30 mg PO DAILY multivitamin (Daily Multi-Vitamin tablet) 1 tab PO DAILY omega 7-pdh-eey-fish oil 120-180-500 mg (Fish Oil) caps PO Tobacco use date assessed: 06/23/25 Dental Screening Dental Screen Date: 06/23/25 Did you have a dental visit in the last 12 months?: Yes Did you have a dental problem in the last 6 months where you did not have access to dental care?: No Was dental information given to patient?: Patient has dentist HPI HPI Comments History of Present Illness Details 44 y/o F with Kidney Stones, prediabetes, obesity, PCOS, fhx skin ca, hx of PNA SurgHx: Lithotripsy November 2019. FHx: Dad CAD, AAA, Mom CAD, HTN, PreDM.. Dad's side: Skin CA. pAunt: Breast Ca,. Uncle Prostate Ca SocHx: Nonsmoiker, EtOH None, No Drugs. , no kids. 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 In Masters program for [employer]. Health Maintenance: Tdap 2016 Mammo declined @ this time, until age 46. Pap 2024 Specialists: Uro - Dr Elmore [employer] TRAINER Nutrition Labs today show a normal CBC, normal electrolytes, normal renal function, normal fasting glucose, normal iron profile, normal LFTs, LDL 116, HDL 38, total cholesterol 173, triglycerides 98, TSH normal, normal urine microalbumin creatinine ratio, hemoglobin A1c 5.3%, vitamin-D normal Here for CPE 2008 PNA since then PND, chronic; over the summer noticed seemed to bother her QD. Treating w/ drinking h20. In Apr started w/ GERD. This is new. If going long periods w/o food can have GERD. But in Apr, it was more sporadic and unrelated to fasting. Had episode so bad, assoc w/ shoulder pain, thought she would need ED. Started famotidine and this has helped. Does not want to be on meds for life. PND has not changed since starting pepcid. Dad with AAA along w/ several aunts/uncles on paternal side. Paternal grandmother with AAA w/ rupture. 7 sisters for SPORTS MEDICINE TRAINER/Breast care. Active Did see Nutrition; no longer. Advised to look into insurance to see who is in network and send me message so i can place referral. No longer Taking 5000 IU Vit D; on MVI. Sleep: 7 hours/night. Denies snoring or witnessed apnea. Wakes feeling rested. Using Mag to help sleep. Optho: Wears glasses, last eye exam Spring 2023. Annual visits. Skin: Was being seen [id number] in the past d/t family hx of skin cancer on Paternal side, [facility]. The last time was about 10 years ago. Denies any worrisome skin changes as of this time. Wears sunscreen. Dental: Needs a root canal; working on this. . . GI: Normal elimination. Mood: good for the most part. + stressors in the day to day; managing . Exam General: Well developed, well nourished, in no acute distress. Appears stated age. Head: Normocephalic, atraumatic. Eyes: Pupils are equal, round and reactive to light and accommodation. Conjunctivae are clear. Vision grossly normal. Ears: TMs clear AU, EACS WNL Nose: Patent, without discharge. Turbinates edematous, mild erythema Mouth: There are no ulcers or lesions noted. No inflammation, no post nasal drip, no plaques nor exudates. Neck: Supple, no adenopathy or thyromegaly. Lungs: Clear to auscultation bilaterally. No rales, rhonchi or wheeze noted. Good air flow in all de luna. Heart: Regular rate and rhythm. No murmurs, click, rubs or gallops are noted. Abdomen: Bowel sounds present in all quadrants. The abdomen is soft, nontender, with no masses or organomegaly noted. No hernias are noted. Musculoskeletal: Joints are nontender, without swelling, redness, or effusions. Range of motion is observed to be normal. Pulses: Peripheral pulses are equal and palpable bilaterally. Extremities: No clubbing, cyanosis nor edema is noted. + varicose veins Neurologic: Gait and station normal. Cranial Nerves 2-12 intact. Motor strength grossly symmetrical and intact. No sensory loss. Balance normal. Skin: No rashes, ulcers, or lesions noted. Turgor is good. Skin color is good. Hair and nails are without abnormalities. Psych: Normal eye contact, affect and mood appropriate, and normal interactions. Patient is alert and appropriate to context. Plan I discussed with the patient the likely diagnosis of GERD exacerbated by prolonged fasting and stress factors at work. We also explored the importance of ruling out H. pylori infection, which can contribute to symptoms of reflux and potentially lead to peptic ulcers if untreated. For postnasal drip, I suggested that allergic rhinitis may be a factor, and outlined options including saline rinses, nasal azelastine, or antihistamines such as Claritin or Zyrtec. I reviewed with her the current medication regimen and advised discontinuing famotidine for two weeks to avoid false negatives in stool testing. We spoke about managing her schedule to mitigate stress and frequent small meals to avoid prolonged fasting. Follow-up was planned for further assessment of labs and potential GI consult if symptoms persist. Labs today. RTO 1 year CPE, sooner as needed. Patient was given time to ask questions. All questions were answered to their satisfaction. An additional 20 minutes was spent addressing the problem(s) noted at todays visit. This includes time spent before the visit reviewing the chart, time spent during the visit, and time spent after the visit on documentation reviewing laboratory results, diagnostic imaging, medications, performing a medically necessary evaluation, counseling on diagnoses, care coordination, ordering appropriate tests, ordering appropriate medications, review of tests performed by other providers, reporting test results with the patient, communication with other healthcare providers. 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 1. Little interest or pleasure in doing things: not at all 2. Feeling down, depressed, or hopeless: not at all 3. Trouble falling or staying asleep, or sleeping too much: several days 4. Feeling tired or having little energy: several days 5. Poor appetite or overeating: not at all 6. Feeling bad about yourself - or that you are a failure or have let yourself or your family down: not at all 7. Trouble concentrating on things, such as reading the newspaper or watching television: not at all 8. Moving or speaking so slowly that other people could have noticed. Or the opposite - being so fidgety or restless that you have been moving around a lot more than usual: not at all 9. Thoughts that you would be better off or of hurting yourself in some way: not at all Total score: 2 Depression Screening Interpretation: Negative Depression Screening Done: Yes 85131 - PHQ-9 Billing: Yes Source: Developed by Drs. Kevin Flores, Aliyah Ruvalcaba, Jose Eng and colleagues, with an educational aleida from [employer]. Thrive Questionnaire Date Thrive assessed: 06/23/25 I am a: Patient What is your living situation today?: I have a steady place to live Within the past 12 months, did the food you bought not last and you didn't have the money to get more?: Never true Within the past 12 months, did you worry whether your food would run out before you got money to buy more?: Never true Do you have trouble paying for medicines?: No Do you have trouble getting transportation to medical appointments?: No Do you have trouble paying your heating and electricity bill?: No Do you have trouble taking care of your child, family member or friend?: No Do you have trouble with day-to-day activities such as bathing, preparing meals, shopping, managing finances, etc.?: No Are you currently unemployed and looking for a job?: No Are you interested in more education?: No Please select the resources that you would like help with: None Currently or been in a relationship where the following occur: No concerns reported THRIVE Score: 0 AUDIT C Alcohol Use Questionnaire (AUDIT-C) 1. How often do you have a drink containing alcohol?: Never 3. How often do you have six or more drinks on one occasion?: Never Total Score: 0 Score Reviewed/Action Taken: Yes NANCY-7 AMB Questionnaire NANCY-7 Date NANCY - 7 assessed: 06/23/25 Feeling nervous, anxious, or on edge: 1 = Several days Not being able to stop or control worryin = Not at all Worrying too much about different things: 0 = Not at all Trouble relaxin = Several days Being so restless that it is hard to sit still: 0 = Not at all Becoming easily annoyed or irritable: 0 = Not at all Feeling afraid as if something awful might happen: 1 = Several days Total NANCY-7 score (0-4 normal; 5-9 mild; 10-14 moderate; 15-21 severe): 3 Source: Developed by Drs. Kevin Flores, Aliyah Ruvalcaba, Jose Eng and colleagues, with an educational aleida from [employer]. NANCY-7 Assessment Billing NANCY-7 Assessment Tool: NANCY-7 Assessment 27840 Physical exam (Primary Care) Vital Signs: Last Vital Signs Temp 97.5 F 06/23/25 08:34 Pulse 91 06/23/25 08:34 Resp 14 06/23/25 08:34 BP 122/82 06/23/25 08:34 Pulse Ox 97 06/23/25 08:34 Oxygen Delivery Method Room Air 06/23/25 08:34 BMI result Body Mass Index 36.7 BMI Assessment/Plan discussion: High BMI High, discussed plan: lifestyle Tobacco/Smoking Status: Tobacco use Status Tobacco use date assessed 06/23/25 06/23/25 08:37 Patient Tobacco Use Status Never used Tobacco 06/23/25 08:34 e-Cigarette/Vaping Use Never Used 06/23/25 08:34 PHQ-9: PHQ-9 Score PHQ-9: Total score 2 06/23/25 08:45 Depression Screening Interpretation: Negative Thrive Assessment: Date of Thrive Assessment Date Thrive assessed 06/23/25 06/23/25 08:30 Currently or been in a relationship where the following occur: No concerns reported Coding Level of Care Code Est Pt Level 3 (50556) Est Pt Prev Care 40-64y(08472) Diagnoses Annual physical exam Z00.00 Family history of coronary artery disease Z82.49 Family history of abdominal aortic aneurysm Z82.49 Elevated fasting blood sugar R73.01 Class 2 obesity due to excess calories without serious comorbidity with body mass index (BMI) of 36.0 to 36.9 in adult E66.09; Z68.36 Obesity type: due to excess calories Serious obesity comorbidity presence: without serious comorbidity PCOS (polycystic ovarian syndrome) E28.2 Mammogram declined Z53.20 Laboratory examination ordered as part of a routine general medical examination Z00.00 Gastroesophageal reflux disease without esophagitis K21.9 Esophagitis presence: without esophagitis Influenza vaccination declined Z28.21 Non-seasonal allergic rhinitis, unspecified trigger J30.89 Allergic rhinitis trigger: unspecified Allergic rhinitis seasonality: non-seasonal Post-nasal drip R09.82 History of Papanicolaou smear of cervix Z92.89 Additional Codes NANCY-7 Assessment Billing - NANCY-7 Assessment Tool: NANCY-7 Assessment 50401 ([id number]) PHQ-9 - 37140 - PHQ-9 Billing: Yes ([id number]) Assessment & Plan Assessment & Plan (1) Annual physical exam: Onset Date: ~06/23/25 Code(s): Z00.00 - Encounter for general adult medical examination without abnormal findings Category: Medical (2) Family history of coronary artery disease: Code(s): Z82.49 - Family history of ischemic heart disease and other diseases of the circulatory system Category: Medical (3) Family history of abdominal aortic aneurysm: Code(s): Z82.49 - Family history of ischemic heart disease and other diseases of the circulatory system Category: Medical (4) Elevated fasting blood sugar: Code(s): R73.01 - Impaired fasting glucose Category: Medical (5) Class 2 obesity with body mass index (BMI) of 36.0 to 36.9 in adult: Code(s): E66.9 - Obesity, unspecified; Z68.36 - Body mass index [BMI] 36.0-36.9, adult Category: Medical Qualifiers: Obesity type: due to excess calories Serious obesity comorbidity presence: without serious comorbidity Qualified Code(s): E66.09 - Other obesity due to excess calories; Z68.36 - Body mass index [BMI] 36.0-36.9, adult (6) PCOS (polycystic ovarian syndrome): Code(s): E28.2 - Polycystic ovarian syndrome Category: Medical (7) Mammogram declined: Onset Date: ~06/23/25 Code(s): Z53.20 - Procedure and treatment not carried out because of patient's decision for unspecified reasons Category: Medical (8) Laboratory examination ordered as part of a routine general medical examination: Code(s): Z00.00 - Encounter for general adult medical examination without abnormal findings Category: Medical (9) GERD (gastroesophageal reflux disease): Code(s): K21.9 - Gastro-esophageal reflux disease without esophagitis Category: Medical Qualifiers: Esophagitis presence: without esophagitis Qualified Code(s): K21.9 - Gastro-esophageal reflux disease without esophagitis (10) Influenza vaccination declined: Code(s): Z28.21 - Immunization not carried out because of patient refusal Category: Medical (11) Allergic rhinitis: Code(s): J30.9 - Allergic rhinitis, unspecified Category: Medical Qualifiers: Allergic rhinitis trigger: unspecified Allergic rhinitis seasonality: non-seasonal Qualified Code(s): J30.89 - Other allergic rhinitis (12) Post-nasal drip: Code(s): R09.82 - Postnasal drip Category: Medical (13) History of Papanicolaou smear of cervix: Onset Date: ~2024 Code(s): Z92.89 - Personal history of other medical treatment Category: Medical Plan . Orders: Orders Complete Blood Count no Diff Today K21.9 - Gastro-esophageal reflux disease without esophagitis, R73.01 - Impaired fasting glucose, Z00.00 - Encounter for general adult medical examination without abnormal findings Hemoglobin A1c Today K21.9 - Gastro-esophageal reflux disease without esophagitis, R73.01 - Impaired fasting glucose, Z00.00 - Encounter for general adult medical examination without abnormal findings Microalbumin, Random (w Creat) Today K21.9 - Gastro-esophageal reflux disease without esophagitis, R73.01 - Impaired fasting glucose, Z00.00 - Encounter for general adult medical examination without abnormal findings TSH reflex Free T4 Today K21.9 - Gastro-esophageal reflux disease without esophagitis, R73.01 - Impaired fasting glucose, Z00.00 - Encounter for general adult medical examination without abnormal findings H pylori Ag Stool Today K21.9 - Gastro-esophageal reflux disease without esophagitis, R73.01 - Impaired fasting glucose, Z00.00 - Encounter for general adult medical examination without abnormal findings Comprehensive Met. Panel Today K21.9 - Gastro-esophageal reflux disease without esophagitis, R73.01 - Impaired fasting glucose, Z00.00 - Encounter for general adult medical examination without abnormal findings Lipid Panel Today K21.9 - Gastro-esophageal reflux disease without esophagitis, R73.01 - Impaired fasting glucose, Z00.00 - Encounter for general adult medical examination without abnormal findings Vitamin B12 and Folate Today K21.9 - Gastro-esophageal reflux disease without esophagitis, R73.01 - Impaired fasting glucose, Z00.00 - Encounter for general adult medical examination without abnormal findings Vitamin D 25-OH Total Today K21.9 - Gastro-esophageal reflux disease without esophagitis, R73.01 - Impaired fasting glucose, Z00.00 - Encounter for general adult medical examination without abnormal findings Patient Instructions: Health screenings for women You should visit your health care provider from time to time, even if you are healthy. The purpose of these visits is to: Screen for medical issues Assess your risk for future medical problems Encourage a healthy lifestyle Update vaccinations and other preventive care services Help you get to know your provider in case of an illness Information Even if you feel fine, you should still see your provider for regular checkups. These visits can help you avoid problems in the future. For example, the only way to find out if you have high blood pressure is to have it checked regularly. High blood sugar and high cholesterol levels also may not have any symptoms in the early stages. A simple blood test can check for these conditions. There are specific times when you should see your provider or receive specific health screenings. The [place] Preventive Services Task Force publishes a list of recommended screenings. Below are screening guidelines for women ages 18 to 39. BLOOD PRESSURE SCREENING Your blood pressure should be checked at least once every 3 to 5 years if: Your blood pressure is in the normal range (top number less than 120 mm Hg and bottom number less than 80 mm Hg) You don't have risk factors for high blood pressure Ask your provider if you need your blood pressure checked more often if: The top number is 120 to 129 mm Hg or the bottom number is 70 to 79 mm Hg You have diabetes, heart disease, kidney problems, are overweight, or have certain other health conditions You have a first-degree relative with high blood pressure You are Black You had high blood pressure during a If the top number is 130 mm Hg or greater or the bottom number is 80 mm Hg or greater, this is considered stage 1 hypertension. Schedule an appointment with your provider to learn how you can reduce your blood pressure. Watch for blood pressure screenings in your area. Ask your provider if you can stop in to have your blood pressure checked. BREAST CANCER SCREENING Experts do not agree about the benefits of breast self-exams in finding breast cancer or saving lives. Talk to your provider about what is best for you. A screening mammogram is not recommended for most women under age 40. Your provider may discuss and recommend mammograms, MRI scans, or ultrasounds if you have an increased risk for breast cancer, such as: A mother or sister who had breast cancer at a young age (most often starting screening earlier than the age the close relative was diagnosed) You carry a high-risk genetic marker CERVICAL CANCER SCREENING Cervical cancer screening should start at age 21 years unless your provider advises otherwise. After the first test: Women ages 21 through 29 should have a Pap test every 3 years. Exoprts do not agree on whether HPV testing is recommended for this age group. Women ages 30 through 65 should be screened with either a Pap test every 3 years or the HPV test every 5 years or both tests every 5 years (called cotesting ). Women who have been treated for precancer (cervical dysplasia) should continue to have Pap tests for 20 years after treatment or until age 65, whichever is longer. If you have had your uterus and cervix removed (total hysterectomy), and you have not been diagnosed with cervical cancer or precancer (high grade cervical neoplasia), you do not need cervical cancer screening. CHOLESTEROL SCREENING Cholesterol screening should begin at: Age 45 for women with no known risk factors for coronary heart disease Age 20 for women with known risk factors for coronary heart disease Repeat cholesterol screening should take place: Every 5 years for women with normal cholesterol levels More often if changes occur in lifestyle (including weight gain and diet) More often if you have diabetes, heart disease, kidney problems, or certain other conditions DIABETES SCREENING You should be screened for diabetes starting at age 35 and then repeated every 3 years if you have no risk factors for diabetes. Screening may need to start earlier and be repeated more often if you have other risk factors for diabetes, such as: You have a first degree relative with diabetes. You are overweight or have obesity. You have high blood pressure, prediabetes, or a history of heart disease. Screening for diabetes should be done if you are planning to become and you are overweight and have other risk factors such as high blood pressure. DENTAL EXAM Go to the dentist once or twice every year for an exam and cleaning. Your dentist will evaluate if you need more frequent visits. EYE EXAM Have an eye exam every 5 to 10 years before age 40. If you have vision problems, have an eye exam every 2 years or more often if recommended by your provider. You should have an eye exam that includes an examination of your retina (back of your eye) at least every year if you have diabetes. IMMUNIZATIONS Commonly needed vaccines include: Flu shot: get one every year. COVID-19 vaccine: ask your provider what is best for you. Tetanus-diphtheria and acellular pertussis (Tdap) vaccine: have one at or after age 19 as one of your tetanus-diphtheria vaccines if you did not receive it as an adolescent. Tetanus-diphtheria: have a booster (or Tdap) every 10 years. Varicella vaccine: receive 2 doses if you never had chickenpox or the varicella vaccine. Hepatitis B vaccine: receive 2, 3, or 4 doses, depending on your exact circumstances. Measles, mumps, and rubella (MMR) vaccine: receive 1 to 2 doses if you are not already immune to MMR. Your provider can tell you if you are immune. Ask your provider about the human papillomavirus (HPV) vaccine if: You have not received the HPV vaccine in the past You have not completed the full vaccine series (you should catch up on this shot) Ask your provider if you should receive other immunizations if you have certain health problems that increase your risk for some diseases such as pneumonia. INFECTIOUS DISEASE SCREENING Women who are sexually active should be screened for chlamydia and gonorrhea up until age 25. Women 25 years and older should be screened for chlamydia and gonorrhea if at high risk. Screening for hepatitis C: All adults ages 18 to 79 should get a one-time test for hepatitis C. people should be screened at every . Screening for human immunodeficiency virus (HIV): All people ages 15 to 65 should get a one-time test for HIV. Depending on your lifestyle and medical history, you may also need to be screened for infections such as syphilis and HIV, as well as other infections. PHYSICAL EXAM All adults should visit their provider from time to time, even if they are healthy. The purpose of these visits is to: Screen for disease Assess your risk of future medical problems Encourage a healthy lifestyle Update your vaccinations and other preventive care services Maintain a relationship with a provider in case of an illness Your height, weight, and BMI should be checked at every exam. During your exam, your provider may ask you about: Depression and anxiety Diet and exercise Alcohol and tobacco use Safety issues, such as using seat belts, smoke detectors, and intimate partner violence Your medicines and risk for interactions SKIN SELF-EXAM Your provider may check your skin for signs of skin cancer, especially if you're at high risk, such as if you: Have had skin cancer before Have close relatives with skin cancer Have a weakened immune system OTHER SCREENING Talk with your provider about colon cancer screening if you have a strong family history of colon cancer or polyps, or if you have had inflammatory bowel disease or polyps yourself. Routine bone density screening of women under 40 is not recommended.
[2025-06-23 08:34] VITALS: BP 122/82; PULSE 91; RESP 14; TEMP 36.4; O2SAT 97; BMI 36.7
== END 2025-06-23 09:20 | disposition home or self-care (01) ==
LOC: HO.HMCFM 08:24
PROVIDERS: PCP Family Medicine; Visit Provider Nurse Practitioner Family
DX: Z00.00 Encounter for general adult medical examination without abnormal findings (principal); R73.01 Impaired fasting glucose; E28.2 Polycystic ovarian syndrome; Z82.49 Family history of ischemic heart disease and other diseases of the circulatory system; R09.82 Postnasal drip; E66.09 Other obesity due to excess calories; Z68.36 Body mass index [BMI] 36.0-36.9, adult; Z53.20 Procedure and treatment not carried out because of patient's decision for unspecified reasons; K21.9 Gastro-esophageal reflux disease without esophagitis; Z28.21 Immunization not carried out because of patient refusal; J30.89 Other allergic rhinitis; Z92.89 Personal history of other medical treatment

== ENCOUNTER 2025-07-21 08:27 | Outpatient (REF) | payer OTHER, SELFPAY ==
--- NOTE | ~2025-07-21 | XR_ITS ---
EXAMINATION: XR ABDOMEN KUB CLINICAL INDICATION: N20.0 - Calculus of kidney COMPARISON: March 20, 2021. Correlated to CT abdomen and pelvis dated November 04, 2019. TECHNIQUE: AP view of the abdomen. FINDINGS: No gross signs desiccation's overlapping the kidney shadows or the bladder. No intestinal obstruction pattern. Levoconvex curvature of the lumbar spine which could be positional. Rudimentary ribs, T12. XR/XR KUB IMPRESSION: No gross nephrolithiasis. Consider noncontrast CT abdomen pelvis, gold standard exam. Electronically signed by: Mrak Mejia MD 07/21/2025 10:19 AM EDT
[2025-07-21 14:04] LABS: Appearance Urine Clear; Glucose Urine UA Negative (Negative); PH 7.0 (5.0-9.0); Specific Gravity - Urine 1.015 (1.005-1.025)
[2025-07-22 06:39] LABS: Chlamydia pneumoniae PCR Not Detected (Not Detect.); Coronavirus 229E PCR Not Detected (Not Detect.); Coronavirus HKU1 PCR Not Detected (Not Detect.); Coronavirus NL63 PCR Not Detected (Not Detect.); Coronavirus OC43 PCR Not Detected (Not Detect.); RSV PCR Not Detected (Not Detect.); Rhino/Enterovirus PCR Not Detected (Not Detect.)
[2025-07-22 06:49] LABS: Influenza A H1 PCR Not Detected (Not Detect.); Influenza A H1-2009 PCR Not Detected (Not Detect.); Influenza A H3 PCR Not Detected (Not Detect.); SARS-CoV-2 PCR Not Detected (Not Detect.)
== END 2025-07-21 08:28 | disposition home or self-care (01) ==
LOC: HO.LAB 08:27
PROVIDERS: PCP Nurse Practitioner Family; Visit Provider Nurse Practitioner Family
DX: R30.0 Dysuria (principal); R09.89 Other specified symptoms and signs involving the circulatory and respiratory systems; N20.0 Calculus of kidney; R10.9 Unspecified abdominal pain; R19.7 Diarrhea, unspecified; K62.5 Hemorrhage of anus and rectum; Z79.899 Other long term (current) drug therapy
CPT/HCPCS: 74018; 81003; 87633

== ENCOUNTER 2025-07-21 08:27 | Outpatient (AMB) | payer OTHER, SELFPAY ==
--- NOTE | 2025-07-21 08:37 | MHC.PC.OV ---
Vital Signs 07/21/25 08:40 Height 4 ft 11 in Weight 180 lb 6 oz BMI 36.4 BP 120/70 Blood Pressure Location Rt brachial Position Sitting Respiration 16 Pulse 108 H Pulse Source Pulse Oximeter Temp 97.6 F Temp Source Oral Pulse Oximetry (%) 97 Oxygen Delivery Method Room Air Intake Visit Reasons: abd pain /diarrhea Intake Note: patient is scheduled for a sick visit pt states she has being experiencing abd pain associated with diarrhea since last night. Watch Leader Required: No Allergies No Known Allergies (No Known Allergies*) Allergy (Verified 07/21/25 08:55) Medication List - Last Reconciled 07/21/25 by Cleo Santos, MEDICAL AND HEALTH SERVICES MANAGER-BC magnesium gluconate 30 mg PO DAILY multivitamin (Daily Multi-Vitamin tablet) 1 tab PO DAILY omega 6-hup-hsi-fish oil 120-180-500 mg (Fish Oil) caps PO Tobacco use date assessed: 06/23/25 Dental Screening Dental Screen Date: 06/23/25 HPI HPI Comments History of Present Illness Details 44 y/o F with Kidney Stones, prediabetes, obesity, PCOS, fhx skin ca, hx of PNA SurgHx: Lithotripsy November 2019. FHx: Dad CAD, AAA, Mom CAD, HTN, PreDM.. Dad's side: Skin CA. pAunt: Breast Ca,. Uncle Prostate Ca SocHx: Nonsmoiker, EtOH None, No Drugs. , no kids. 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 In Masters program for [employer]. Health Maintenance: Tdap 2015 Mammo declined @ this time, until age 46. Pap 2024 Specialists: Uro - Dr Elmore [facility] Here today for abd pain and diarrhea that started in the last 24 hours Went to bed in normal health awoken w/ feeling of need to move bowels Had diarrhea developed pain in LLQ Was in BR for about 30 min Assoc nausea Was able to drink h20 and go back to bed Had several episodes of diarrhea during the night Hx of kidney stones Urination is normal Pain does not move or radiate Noted blood in the toilet and on paper Wonders if irritated from wiping ^ acid reflux over the last few days Diet as tolerated Denies fever. [place] hot last night. Dry sore throat Denies runny nose, cough. is not sick. Exam General: Well developed, well nourished, in no acute distress. Tired appearing Head: Normocephalic, atraumatic. Eyes: Pupils are equal, round and reactive to light and accommodation. Conjunctivae are clear. Scleras nonicteric Mouth: MMM. Pharynx: clear Lungs: Clear to auscultation bilaterally. No rales, rhonchi or wheeze noted. Good air flow in all de luna. Heart: Mildly tachys, Regular rhythm. No murmurs, click, rubs or gallops are noted. Abdomen: Bowel sounds present in all quadrants. The abdomen is soft, mildly tender generally speaking w/o rebound, no peritoneal signs. + CVAT L flank Skin: PWD During our consultation, we discussed the primary concerns of abdominal pain and diarrhea, with a focus on the history of nephrolithiasis and potential gastrointestinal infection. I communicated suspicion towards a recurrent kidney stone versus a viral gastroenteritis. We reviewed possible next steps, including a KUB (kidneys, ureter, and bladder) imaging study to evaluate for nephrolithiasis. Additionally, we discussed doing a nasal swab to check for potential viral infections. We talked about potential management strategies, including maintaining hydration and possible dietary adjustments. It was advised that, considering her symptoms, a urine sample and further diagnostic evaluations could guide our management. The patient was informed to maintain hydration with electrolyte solutions, suggesting fluid intake from soups and popsicles to counter dehydration effects. Return precautions included monitoring for persistent bleeding or symptoms escalation. Patient consented to all discussed plans, expressing understanding and readiness to proceed. Patient was given time to ask questions. All questions were answered to their satisfaction. 1. Abdominal Pain - Proceed with KUB assessment. UA today Zofran for nausea. 2. Diarrhea - Oral rehydration advised, nasal swab for pathogen testing. - If bleeding cont, advised for her to let me know so we can fu further; recommend to submit H Pylori stool, too 3. History of Nephrolithiasis - Evaluate with current imaging to confirm suspicion. 1544: KUB results are normal. Urinalysis is normal. Patient was called and reports that she has noted an increase in the rectal bleeding & the bright red blood in the toilet. She is feeling worse than when I saw her earlier. Offered to order a stat CT scan versus go to the emergency room for evaluation and treatment. She opted to go to the emergency room for evaluation and treatment. Advised to follow up with me after her acute care workup. Patient Instruction: - Drink fluids such as soups or liquid IV to stay hydrated. - Avoid caffeine and alcohol, as they dehydrate you. - Use popsicles or Jell-O for extra fluid intake. - Visit the lab for urine collection and further tests. - Monitor for worsening symptoms, or if more blood is noted. - results will be communicated via portal w/ next steps Total time spent caring for the patient today was 30 minutes. This includes time spent before the visit reviewing the chart, time spent during the visit, and time spent after the visit on documentation, reviewing laboratory results, diagnostic imaging, medications, performing a medically necessary evaluation, counseling on diagnoses, care coordination, ordering appropriate tests, ordering appropriate medications, review of tests performed by other providers, reporting test results with the patient, communication with other healthcare providers. COUNT INCLUDES THE [facility] Medical History Kidney stones Family History Family/Other Mental health disorder Family/Other Substance abuse Mother HTN (hypertension) High cholesterol Cardiovascular disease Father Cardiovascular disease Maternal Grandmother Cardiovascular disease Maternal Grandfather Alcoholism Social History (Updated 06/23/25 @ 08:34 by Sheyla Xiong CMA) Housing: Apartment Alcohol intake: never Patient Tobacco Use Status: Never used Tobacco e-Cigarette/Vaping Use: Never Used Second Hand Smoke Exposure: No service: No Current occupational status: employed 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 Current occupational exposures/hazards: No Cognitive needs: No Hearing needs: No Vision needs: Yes (glasses) Questionnaire Thrive Questionnaire Date Thrive assessed: 06/16/25 I am a: Patient What is your living situation today?: I have a steady place to live Within the past 12 months, did the food you bought not last and you didn't have the money to get more?: Never true Within the past 12 months, did you worry whether your food would run out before you got money to buy more?: Never true Do you have trouble paying for medicines?: No Do you have trouble getting transportation to medical appointments?: No Do you have trouble paying your heating and electricity bill?: No Do you have trouble taking care of your child, family member or friend?: No Do you have trouble with day-to-day activities such as bathing, preparing meals, shopping, managing finances, etc.?: No Are you currently unemployed and looking for a job?: No Are you interested in more education?: No Please select the resources that you would like help with: None Currently or been in a relationship where the following occur: No concerns reported THRIVE Score: 0 NANCY-7 AMB Questionnaire NANCY-7 Date NANCY - 7 assessed: 06/23/25 Source: Developed by Drs. Kevin Flores, Aliyah Ruvalcaba, Jose Eng and colleagues, with an educational aleida from [employer]. Physical exam (Primary Care) Vital Signs: Last Vital Signs Temp 97.6 F 07/21/25 08:40 Pulse 108 H 07/21/25 08:40 Resp 16 07/21/25 08:40 BP 120/70 07/21/25 08:40 Pulse Ox 97 07/21/25 08:40 Oxygen Delivery Method Room Air 07/21/25 08:40 BMI result Body Mass Index 36.4 Tobacco/Smoking Status: Tobacco use Status Tobacco use date assessed 06/23/25 07/21/25 08:38 Patient Tobacco Use Status Never used Tobacco 07/21/25 08:38 e-Cigarette/Vaping Use Never Used 07/21/25 08:38 Thrive Assessment: Date of Thrive Assessment Date Thrive assessed 06/16/25 07/21/25 08:38 Currently or been in a relationship where the following occur: No concerns reported Results Reviewed Results Reviewed: EXAMINATION: XR ABDOMEN KUB CLINICAL INDICATION: N20.0 - Calculus of kidney COMPARISON: March 20, 2021. Correlated to CT abdomen and pelvis dated November 04, 2019. TECHNIQUE: AP view of the abdomen. FINDINGS: No gross signs desiccation's overlapping the kidney shadows or the bladder. No intestinal obstruction pattern. Levoconvex curvature of the lumbar spine which could be positional. Rudimentary ribs, T12. XR/XR KUB IMPRESSION: No gross nephrolithiasis. Consider noncontrast CT abdomen pelvis, gold standard exam. Electronically signed by: Mark Mejia MD 07/21/2025 10:19 AM EDT RP Coding Level of Care Code Est Pt Level 4 (79961) Complex EM visit Add On G2211 Diagnoses Recurrent kidney stones N20.0 Diarrhea, unspecified type R19.7 Diarrhea type: unspecified type Bright red blood per rectum K62.5 Left flank pain R10.9 Assessment & Plan Assessment & Plan (1) Recurrent kidney stones: Comment: calcium oxalate Code(s): N20.0 - Calculus of kidney Category: Medical (2) Diarrhea: Code(s): R19.7 - Diarrhea, unspecified Category: Medical Qualifiers: Diarrhea type: unspecified type Qualified Code(s): R19.7 - Diarrhea, unspecified (3) Bright red blood per rectum: Code(s): K62.5 - Hemorrhage of anus and rectum Category: Medical (4) Left flank pain: Code(s): R10.9 - Unspecified abdominal pain Category: Medical Plan . Orders: Orders XR KUB Today N20.0 - Calculus of kidney, R10.9 - Unspecified abdominal pain Resp Pathogen Panel - [facility] Today R09.89 - Other specified symptoms and signs involving the circulatory and respiratory systems UA CC w/rflx Micro + Cult Today R30.0 - Dysuria Medications: New ondansetron HCl 4 mg PO Q8H PRN 15 tabs 0RF nausea and vomiting 3 days
[2025-07-21 08:40] VITALS: BP 120/70; PULSE 108; RESP 16; TEMP 36.4; O2SAT 97; BMI 36.4
== END 2025-07-21 09:07 | disposition home or self-care (01) ==
LOC: HO.HMCFM 08:28
PROVIDERS: PCP Nurse Practitioner Family; Visit Provider Nurse Practitioner Family
DX: N20.0 Calculus of kidney (principal); R19.7 Diarrhea, unspecified; K62.5 Hemorrhage of anus and rectum; R10.9 Unspecified abdominal pain

== ENCOUNTER 2025-07-21 09:21 | Outpatient (REF) | payer OTHER, SELFPAY | END 2025-07-21 09:22 | disposition home or self-care (01) | LOC: HO.WFDLDS 09:21 | PROVIDERS: Visit Provider Nurse Practitioner Family | DX: Z13.89 Encounter for screening for other disorder (principal) ==

== ENCOUNTER → 2025-07-21 10:01 | Outpatient (BNV) | payer OTHER, SELFPAY | PROVIDERS: PCP Nurse Practitioner Family; Visit Provider Radiology Diagnostic Radiology | DX: N20.0 Calculus of kidney (principal); N32.89 Other specified disorders of bladder | CPT/HCPCS: 74018; 74176 ==

== ENCOUNTER 2025-07-21 15:56 | Emergency (ER) | payer OTHER, SELFPAY ==
--- NOTE | ~2025-07-21 | CT_ITS ---
CLINICAL HISTORY: left nephrolithiasis flank pain CT abdomen and pelvis without contrast Comparison: None provided Findings: Diffuse esophageal mural thickening, nonspecific. Hepatomegaly. Scattered subcentimeter low-density lesions throughout the liver, likely cysts or hemangiomas, too small to characterize. Mild thickening of the adrenal glands with nodularity in the left with a possible small nodule measuring 0.9 cm. Average Hounsfield unit measures 11, may reflect a tiny adrenal adenoma. Adrenal protocol imaging and biochemical assay if indicated may be helpful. Nonobstructive bilateral subcentimeter renal calculi in the lower poles measuring no more than 3 mm. No bowel obstruction, pneumoperitoneum, or pneumatosis. Scattered phleboliths in the pelvis. Fluid-filled prominence in the endocervical/vaginal canal with surrounding peripheral densities. Correlation with menses advised. Scattered colonic diverticulosis without diverticulitis or colitis. Normal appendix. Circumferential bladder wall thickening. No acute fracture. Limbus deformities along the anterior superior endplates of L4 and L5. IMPRESSION: 1. Nonobstructive bilateral subcentimeter renal calculi in the lower poles measuring no more than 3 mm. 2. Circumferential bladder wall thickening may be related to degree of underdistention or mild cystitis. This document has been electronically signed by: mG Fitzpatrick MD on 07/21/2025 23:07:36
[2025-07-21 16:18] VITALS: BP 136/96; PULSE 94; RESP 18; TEMP 36.6; O2SAT 97; BMI 35.8
--- NOTE | 2025-07-21 16:22 | ED_ITS ---
[facility] - General Adult General Chief complaint: Abdominal Pain Stated complaint: Abd pain, diarrhea Time Seen by Provider: 07/21/25 20:51 Source: patient Mode of arrival: ambulatory Limitations: no limitations History of Present Illness ED Provider: Dr. Eastman [facility] narrative: This is a 44-year-old female presented hospital today for evaluation of couple of days of diarrhea left-sided flank pain and generalized abdominal pain. She is also complaining of bright red blood rectal bleeding. No fevers. Saw her PCP today was instructed to come to the ER for a CAT scan. She does have history of nephrolithiasis in the past that required lithotripsy. Related Data Home Medications ?Medication ?Instructions ?Recorded ?Confirmed magnesium gluconate 30 mg (550 mg) 30 mg PO DAILY 06/0107/21/25 tablet multivitamin (Daily Multi-Vitamin 1 tab PO DAILY 06/2307/21/25 tablet) omega 8-nmy-xzm-fish oil 120 cap PO 06/23/25 07/21/25 mg-180 mg-500 mg capsule (Fish Oil) Previous Rx's ?Medication ?Instructions ?Recorded dicyclomine 10 mg capsule 10 mg PO TID PRN abdominal p ain 07/21/25 #20 caps loperamide 2 mg capsule (Imodium 2 mg PO QID PRN loose stool #14 07/21/25 A-D) caps ondansetron HCl 4 mg tablet 4 mg PO Q8H PRN nausea and 07/21/25 vomiting 3 days #15 tabs Allergies Allergy/AdvReac Type Severity Reaction Status Date / Time No Known Allergies (No Known Allergy Verified 07/21/25 16:21 Allergies*) Review of Systems 2 Review of Systems: Pertinent review of systems as mentioned in HPI. All other system otherwise negative. [facility] Past Medical History [facility] Narrative: Medical history as mentioned in HPI Medical History Kidney stones Family History Family History Family/Other Mental health disorder Family/Other Substance abuse Mother HTN (hypertension) High cholesterol Cardiovascular disease Father Cardiovascular disease Maternal Grandmother Cardiovascular disease Maternal Grandfather Alcoholism Social History Social History (Updated 06/23/25 @ 08:34 by Sheyla Xiong CMA) Housing: Apartment Alcohol intake: never Patient Tobacco Use Status: Never used Tobacco Smoked in Last 30 Days: No e-Cigarette/Vaping Use: Never Used Second Hand Smoke Exposure: No Use of substances other than those prescribed or required for medical reasons: No Advance Directives: No Advance Directives Information Provided: Yes Patient : No service: No Current occupational status: employed 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 Current occupational exposures/hazards: No Cognitive needs: No Hearing needs: No Vision needs: Yes (glasses) Physical Exam ED Exam Exam: General: Pleasant, no distress, interacting appropriately Head: Normacephalic, atraumatic ENT: oral mucosa moist, neck supple, no tracheal deviation Cardiovascular: regular rate, regular rhythm, no murmurs, rubbing, gallops Respiratory: CTAB, no wheeze, rales, rhonchi Gastrointestinal: Soft, non distended, generalized abdominal pain on exam Skin: Warm and dry Psychiatric: Appropriate mood and thoughts Vital Signs: Vital Signs - 24 hr 07/21/25 16:18 07/21/25 20:51 07/21/25 22:09 Temperature 98 F 97.9 F 97.7 F Pulse Rate 94 84 87 Respiratory Rate 18 Blood Pressure 136/96 H 128/90 H 130/83 Pulse Oximetry 97 96 100 Oxygen Delivery Method Room Air Room Air Room Air BMI result Body Mass Index 35.8 Course Course Course Narrative: This is a Rapid Medical Examination (RME) performed by Prince Krishnan PA-C in triage. Full HPI, ROS, assessment and treatment plan per primary provider in the Main ED. Hx: 44 yo F here for eval of diarrhea, generalized abdominal pain, left flank pain and bright red blood per rectum x24 hours. Plan: labs, UA Medications Administered Discontinued Medications Generic Name Dose Route Start Last Admin Trade Name Freq PRN Reason Stop Dose Admin Al Hydroxide/Mg Hydroxide 30 ml 07/21/25 22:13 07/21/25 22:23 Magnesium Hydrox/Alum Hydrox 30 Ml Oral.Susp PO 07/21/25 22:14 Not Given ONCE ONE Sodium Chloride 1,000 mls @ 999 mls/hr 07/21/25 21:45 07/21/25 22:58 Ns IV 07/21/25 22:45 Infused .Q1H1M BELEN Infusion Lidocaine HCl 15 ml 07/21/25 22:13 07/21/25 22:23 Lidocaine Hcl Viscous 2 % 15 Ml Solution MUCOUS MEM 07/21/25 22:14 Not Given ONCE ONE Medical Decision Making Medical Decision Making [facility] Narrative: 44-year-old female presented hospital today for diarrhea and left-sided flank pain. We will plan to give patient some IV fluid. Patient stated her pain is controlled. Nausea is controlled. She is also having some rectal bleeding. On rectal exam. No sign of hemorrhoids. No sign of anal fissure. Patient's hemoglobin stable on lab work. We will plan to obtain a CT abdomen and pelvis to assess for any further cause of her GI bleed and left-sided flank pain. Urinalysis is negative. CT abdomen and pelvis did show nonobstructing kidney stone bilaterally. Incidental finding of liver cyst along with possible adrenal nodule. This was discussed with the patient and the patient's . We will plan to follow up with the primary care doctor for this. We will plan to discharge patient at this time. Patient appears to be well. Bentyl will be prescribed for abdominal cramps. We will also plan to prescribe some Imodium for diarrhea. Differential Diagnosis Differential Diagnoses: The differential diagnosis associated with the presentation includes Colitis, gastroenteritis, nephrolithiasis, intra-abdominal abscess Lab Data [facility] Lab Attestation statement: I reviewed the patient's lab results. 07/21/25 16:29 07/21/25 16:29 Labs: Lab Results 07/21/25 07/21/25 Range/Units 16:29 21:15 WBC 10.3 (4.8-10.8) X10*3/uL RBC 5.20 (4.20-5.50) X10*6/uL Hgb 14.8 (12.0-16.0) g/dl Hct 44.4 (37.0-47.0) % MCV 85.4 (80.0-98.0) fL MCH 28.5 (27.0-33.0) pg MCHC 33.3 (31.0-35.0) g/dl RDW 12.4 (11.0-16.0) % Plt Count 264 (160-400) X10*3/uL MPV 8.9 L (9.4-12.3) fL Immature Gran % (Auto) 0.2 (0.0-0.4) % Neut % (Auto) 67.4 (45-73) % Lymph % (Auto) 24.8 (20-40) % [place] % (Auto) 5.6 (2-11) % Eos % (Auto) 1.5 (0-4) % Baso % (Auto) 0.5 (0-2) % Lymph # (Auto) 2.6 (1.2-4.9) X10*3/uL [place] # (Auto) 0.6 (0.1-1.2) X10*3/uL Eos # (Auto) 0.2 (0.0-0.4) X10*3/uL Baso # (Auto) 0.1 (0.0-0.2) X10*3/uL Abs Immat Gran (auto) 0.02 (0.00-0.03) X10*3/uL Absolute Neuts (auto) 6.9 (2.0-8.3) x10*3/uL Absolute Nucleated RBC 0.000 (0.0-0.012) X10*3/uL Nucleated RBC % (auto) 0.0 (0.0-0.2) /100WBC Sodium 142 (135-145) mmol/L Potassium 4.1 (3.3-5.1) mmol/L Chloride 107 (96-108) mmol/L Carbon Dioxide 28 (22-29) mmol/L Anion Gap 11 L (12-20) BUN 12 (9-16) mg/dL Creatinine 0.76 (0.5-1.4) mg/dL Estim Creat Clear Calc 87.6 Estimated GFR > 60 Random Glucose 94 (60-115) mg/dL Calcium 9.9 (8.4-10.2) mg/dL Magnesium 2.1 (1.6-2.6) mg/dL Total Bilirubin 0.4 (0.0-1.0) mg/dL AST 18 (5-31) U/L ALT 26 (0-31) U/L Alkaline Phosphatase 83 (39-117) U/L Total Protein 7.7 (6.5-8.0) g/dL Albumin 4.6 (3.5-5.0) g/dL Lipase 27 (8-78) U/L Beta HCG, Quant < 2 mIU/mL Urine Color Yellow Urine Appearance Clear Urine pH 6.0 (5.0-9.0) Ur Specific [place] 1.010 (1.005-1.025) Urine Protein Negative (Neg-Trace) mg/dL Urine Glucose (UA) Negative (Negative) mg/dL Urine Ketones Negative (Negative) mg/dL Urine Blood Negative (Negative) Urine Nitrite Negative (Negative) Ur Leukocyte Esterase Negative (Negative) Independent Interpretation I performed an independent interpretation of an: CT Scan Radiology Impression Discussion of test interpretation with radiology: I have reviewed the radiologist's reading. Discharge Plan Discharge Clinical Impression: Acute left flank pain, Diarrhea Patient Disposition: Home, Self-Care Instructions: Acute Diarrhea (ED) Additional Instructions: Follow up with your primary care doctor to ensure you are improving. Prescriptions: New loperamide [Imodium A-D] 2 mg capsule 2 mg PO QID PRN (Reason: loose stool) Qty: 14 0RF dicyclomine 10 mg capsule 10 mg PO TID PRN (Reason: abdominal pain) Qty: 20 0RF No Action ondansetron HCl 4 mg tablet 4 mg PO Q8H PRN (Reason: nausea and vomiting) 3 Days Qty: 15 0RF multivitamin [Daily Multi-Vitamin] Tablet 1 tab PO DAILY magnesium gluconate 30 mg (550 mg) tablet 30 mg PO DAILY Fish Oil 120-180-500 mg capsule PO Print Language: Norwegian
[2025-07-21 16:35] LABS: Hematocrit 44.4 % (37.0-47.0); Hemoglobin 14.8 g/dl (12.0-16.0); Imm Gran Abs Auto 0.02 X10*3/uL (0.00-0.03); Imm Gran Pct Auto 0.2 % (0.0-0.4); Lymphocytes Absolute Auto 2.6 X10*3/uL (1.2-4.9); MANUAL DIFF FLAG NO; Mean Corpuscular HGB Conc 33.3 g/dl (31.0-35.0); Mean Corpuscular Hemoglobin 28.5 pg (27.0-33.0); Mean Corpuscular Volume 85.4 fL (80.0-98.0); NRBC Abs Auto 0.000 X10*3/uL (0.0-0.012); NRBC Pct Auto 0.0 /100WBC (0.0-0.2); Platelet Count 264 X10*3/uL (160-400); Red Blood Count 5.20 X10*6/uL (4.20-5.50); White Blood Count 10.3 X10*3/uL (4.8-10.8)
[2025-07-21 16:54] LABS: Alanine Aminotransferase 26 U/L (0-31); Albumin Level 4.6 g/dL (3.5-5.0); Alkaline Phosphatase 83 U/L (39-117); Anion Gap 11 (12-20); Aspartate Amino Transferase 18 U/L (5-31); Blood Urea Nitrogen 12 mg/dL (9-16); Calcium 9.9 mg/dL (8.4-10.2); Carbon Dioxide 28 mmol/L (22-29); Chloride 107 mmol/L (96-108); Creatinine Clr Calc Pharmacy 87.6; Estimated Glomerular Filt Rate > 60; Lipase 27 U/L (8-78); Magnesium 2.1 mg/dL (1.6-2.6); Potassium 4.1 mmol/L (3.3-5.1); Sodium 142 mmol/L (135-145); Total Protein 7.7 g/dL (6.5-8.0)
[2025-07-21 20:51] VITALS: BP 128/90; PULSE 84; TEMP 36.6; O2SAT 96
[2025-07-21 21:27] LABS: Appearance Urine Clear; Glucose Urine UA Negative (Negative); PH 6.0 (5.0-9.0); Specific Gravity - Urine 1.010 (1.005-1.025)
[2025-07-21 22:09] VITALS: BP 130/83; PULSE 87; TEMP 36.5; O2SAT 100
--- NOTE | 2025-07-21 22:23 | PC.NURSE ---
Pt resting in bed, IVF running. States she does not want oral Maalox/Lidocaine, state she does not do good with oral medications . Provider notified.
[2025-07-21 23:27] VITALS: BP 116/72; PULSE 91; TEMP 36.6; O2SAT 95
[2025-07-22 00:01] VITALS: BP 116/72; PULSE 91; RESP 16; TEMP 36.6; O2SAT 95
== END 2025-07-22 00:02 | disposition home or self-care (01) ==
PROVIDERS: Physician Assistant Medical; Emergency Provider Student in an Organized Health Care Education/Training Program; PCP Nurse Practitioner Family
DX: R10.A2 Flank pain, left side (principal); R19.7 Diarrhea, unspecified; Z87.442 Personal history of urinary calculi
CPT/HCPCS: 36415; 74176; 80053; 81003; 83690; 83735; 84702; 85025; 96360; 99284

== ENCOUNTER 2025-07-26 08:35 | Outpatient (REF) | payer OTHER, SELFPAY | END 2025-07-26 08:36 | disposition home or self-care (01) | LOC: HO.HKASLDS 08:35 | PROVIDERS: PCP Nurse Practitioner Family; Visit Provider Nurse Practitioner Family | DX: Z00.00 Encounter for general adult medical examination without abnormal findings (principal); R73.01 Impaired fasting glucose; K21.9 Gastro-esophageal reflux disease without esophagitis | CPT/HCPCS: 87338 ==

== ENCOUNTER 2025-07-28 13:44 | Outpatient (AMB) | payer OTHER, SELFPAY ==
--- NOTE | 2025-07-28 13:48 | A.OFFPC_ITS ---
Vital Signs 07/28/25 13:50 Height 4 ft 11 in Weight 184 lb BMI 37.2 BP 118/68 Blood Pressure Location Rt brachial Position Sitting Respiration 12 Pulse 75 Pulse Source Pulse Oximeter Temp 97.6 F Temp Source Oral Pulse Oximetry (%) 98 Oxygen Delivery Method Room Air Intake Visit Reasons: CT results Intake Note: Follow up to review CT results. Packager Required: No Allergies No Known Allergies (No Known Allergies*) Allergy (Verified 07/28/25 13:49) Tobacco use date assessed: 07/28/25 Dental Screening Dental Screen Date: 07/28/25 Did you have a dental visit in the last 12 months?: Yes Did you have a dental problem in the last 6 months where you did not have access to dental care?: No Was dental information given to patient?: Patient has dentist HPI HPI Comments History of Present Illness Details 44 y/o F with Kidney Stones, prediabetes , obesity, PCOS, fhx skin ca, hx of PNA SurgHx: Lithotripsy November 2019. FHx: Dad CAD, AAA, Mom CAD, HTN, PreDM.. Dad's side: Skin CA. pAunt: Breast Ca,. Uncle Prostate Ca SocHx: Nonsmoiker, EtOH None, No Drugs. , no kids. 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 In Masters program for [employer]. Health Maintenance: Tdap 2015 Mammo declined @ this time, until age 46. Pap 2024 Specialists: Uro - Dr Elmore [employer] Nutrition History of Present Illness The patient is a 44-year-old female presenting for a follow-up visit regarding abdominal pain, rectal bleeding, and recent CT imaging results. Abdominal Pain and Rectal Bleeding: - The patient presented to the emergency room at [facility] on July 21 due to abdominal pain and rectal bleeding. - She reports that the bleeding occurred on a Saturday and had resolved by Saturday morning, with no further episodes of blood. - She experienced constipation following the event and did not have a solid bowel movement until the following Saturday. - Her bowel movements have since returne d to her normal frequency of 1-2 times per day. - She notes that it is sometimes painful to defecate around her menstrual cycle, which is due in the next few days. - A stool sample was submitted two days ago for testing, and the results are pending. Nephrolithiasis an Flank Pain: - Recent CT imaging revealed bilateral, nonobstructive, subcentimeter renal calculi, with the largest measuring no more than 3 mm. - The patient has a history of kidney st ones and experienced residual pain for months after a prior stone. - She currently reports persistent pain and tenderness in the left flank area, though the stones are present on both sides. Hepatomegaly and Liver Lesions: - The CT scan showed incidental findings of hepatomegaly and scattered, subcentimeter, low-density liver lesions, considered to be either cysts or hemangiomas. - The patient has no family history of n ey-sicjygx-midbbge liver disease and has not consumed alcohol since 2008. - She denies a history of mononucleosis as a child. - Her diet consists of fresh or frozen f ruits, vegetables, and meats, although she acknowledges eating some processed foods like bread. Left Adrenal Adenoma: - The CT scan also showed mild thickenin g of the adrenal glands, with nodularity on the left and a possible small nodule measuring 0.9 cm, likely reflecting an adrenal adenoma. Past Medical History - Past Medical History: History of kidne y stones. - Social History: Denies alcohol use sin ce 2008. - Family History: No family history of n on-alcohol related liver disease. Review of Systems - Constitutional: Reports feeling conges brenton. - Respiratory: Reports coughing this mor nancy after eating. - Gastrointestinal: Reports history of c onstipation which has resolved, with bowel movements now regular. - Genitourinary: Reports left flank pain . - Musculoskeletal: Reports tenderness in her back and leg. Exam General: Well developed, well nourished, in no acute distress. Head: Normocephalic, atraumatic. Eyes: Pupils are equal, round and reactive to light and accommodation. Conjunctivae are clear. Scleras nonicteric Mouth: MMM. Pharynx: clear Lungs: Clear to auscultation bilaterally. No rales, rhonchi or wheeze noted. Good air flow in all de luna. Heart: Regular rate & rhythm. No murmurs, click, rubs or gallops are noted. Abdomen: Bowel sounds present in all quadrants. The abdomen is soft, nontender,. + CVAT L flank continues Skin: PWD Results - Labs: Blood work from the emergency ro om visit was unremarkable. - CT Abdomen/Pelvis: Findings include he patomegaly; scattered subcentimeter low- density liver lesions suspicious for cysts or hemangiomas; bilateral nonobstructive subcentimeter renal calculi (<=3 mm); mild thickening of adrenal glands with left-sided nodularity and a possible 0.9 cm adrenal adenoma; diverticulosis. - Pending Tests: A stool sample was subm itted for H. pylori testing; results are pending. Medical Decision Making The patient is a 44-year-old female who presented for follow-up of abdominal pain and rectal bleeding, which have resolved since her ER visit on 07/21. A CT scan from the ER revealed several incidental findings, including hepatomegaly with liver lesions and a left adrenal nodule. While her liver enzymes have been normal and she lacks risk factors such as alcohol use or a family history of liver disease, the hepatomegaly and lesions warrant further investigation to determine their nature; they are most likely benign cysts or related to non-alcoholic fatty liver disease. Similarly, the 0.9 cm left adrenal nodule is likely a benign adenoma, but dedicated imaging is required for definitive characterization and to rule out malignancy. The bilateral, non-obstructive renal calculi are consistent with her known history and do not require acute intervention. Her persistent left flank pain is noted and may be related to the renal calculi. The plan is to order a liver protocol MRI and an adrenal protocol CT scan to evaluate the incidental findings. She was also counseled on adopting a Mediterranean diet to support liver health. Plan 1. Hepatomegaly And Liver Lesions - An MRI of the abdomen with liver marcy col will be ordered to further evaluate the liver lesions, which are likely benign cysts or hemangiomas. - The patient was counseled on the benef its of a Mediterranean diet, which is low in processed foods and rich in seafood and high-fiber grains, to promote liver health. - Reassured the patient that her liver e nzymes have been normal and that these findings are often benign. 2. Left Adrenal Adenoma - An adrenal protocol CT scan with contr ast will be ordered to further characterize the 0.9 cm left adrenal nodule. - The patient was informed that adrenal adenomas are most often benign and that imaging is needed to confirm this. 3. Bilateral Nephrolithiasis And Left Fl ank Pain - As the renal calculi are non-obstructi ve and small (<=3 mm), no acute intervention is planned. - For the associated left flank pain, th e patient may continue using lidocaine patches for symptomatic relief. 4. Abdominal Pain And Rectal Bleeding (R esolved) - The patient's symptoms have resolved. - Awaiting results from the H. pylori st ool test, which may take about a week. - Will follow up with the patient once a ll diagnostic results are available. Patient Instructions - You will be scheduled for two separate imaging tests: an MRI of your abdomen to look at your liver, and a CT scan with dye to look at your adrenal glands. - Continue to use lidocaine patches as n eeded for your back pain. - To support your liver health, consider following a Mediterranean diet, which focuses on seafood, high-fiber grains, and fresh produce, while limiting processed foods, sugar, and additives. - I will contact you with the results of your imaging studies and stool test to discuss the findings and any next steps. - If you have any problems or do not hea r from the scheduling department about your imaging tests, please send a message through the patient portal. Consent The plan to order a CT scan of the adrenals with contrast dye was discussed. It was explained that the imaging center staff will provide detailed instructions about the process, what to expect during the procedure, and what symptoms to report in the unlikely event of a reaction to the dye. The patient acknowledged that this would be her first time receiving contrast dye. Patient was informed and verbally consented to the use of an ambient scribe for clinic note documentation during this visit. Total time spent caring for the patient today was 30 minutes. This includes time spent before the visit reviewing the chart, time spent during the visit, and time spent after the visit on documentation, reviewing laboratory results, diagnostic imaging, medications, performing a medically necessary evaluation, counseling on diagnoses, care coordination, ordering appropriate tests, ordering appropriate medications, review of tests performed by other providers, reporting test results with the patient, communication with other healthcare providers. 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 Current occupational exposures/hazards: No Cognitive needs: No Hearing needs: No Vision needs: Yes (glasses) Questionnaire Thrive Questionnaire Date Thrive assessed: 06/16/25 I am a: Patient What is your living situation today?: I have a steady place to live Within the past 12 months, did the food you bought not last and you didn't have the money to get more?: Never true Within the past 12 months, did you worry whether your food would run out before you got money to buy more?: Never true Do you have trouble paying for medicines?: No Do you have trouble getting transportation to medical appointments?: No Do you have trouble paying your heating and electricity bill?: No Do you have trouble taking care of your child, family member or friend?: No Do you have trouble with day-to-day activities such as bathing, preparing meals, shopping, managing finances, etc.?: No Are you currently unemployed and looking for a job?: No Are you interested in more education?: No Please select the resources that you would like help with: None Currently or been in a relationship where the following occur: No concerns reported THRIVE Score: 0 NANCY-7 AMB Questionnaire NANCY-7 Date NANCY - 7 assessed: 06/23/25 Source: Developed by Drs. Kevin Flores, Aliyah Ruvalcaba, Jose Eng and colleagues, with an educational aleida from [employer]. Physical exam (Primary Care) Vital Signs: Last Vital Signs Temp 97.6 F 07/28/25 13:50 Pulse 75 07/28/25 13:50 Resp 12 07/28/25 13:50 BP 118/68 07/28/25 13:50 Pulse Ox 98 07/28/25 13:50 Oxygen Delivery Method Room Air 07/28/25 13:50 BMI result Body Mass Index 37.2 Tobacco/Smoking Status: Tobacco use Status Tobacco use date assessed 07/28/25 07/28/25 13:52 Patient Tobacco Use Status Never used Tobacco 07/28/25 13:52 e-Cigarette/Vaping Use Never Used 07/28/25 13:52 Thrive Assessment: Date of Thrive Assessment Date Thrive assessed 06/16/25 07/28/25 13:52 Currently or been in a relationship where the following occur: No concerns reported Results Reviewed Results Reviewed: Findings: Diffuse esophageal mural thickening, nonspecific. Hepatomegaly. Scattered subcentimeter low-density lesions throughout the liver, likely cysts or hemangiomas, too small to characterize. Mild thickening of the adrenal glands with nodularity in the left with a possible small nodule measuring 0.9 cm. Average Hounsfield unit measures 11, may reflect a tiny adrenal adenoma. Adrenal protocol imaging and biochemical assay if indicated may be helpful. Nonobstructive bilateral subcentimeter renal calculi in the lower poles measuring no more than 3 mm. No bowel obstruction, pneumoperitoneum, or pneumatosis. Scattered phleboliths in the pelvis. Fluid-filled prominence in the endocervical/vaginal canal with surrounding peripheral densities. Correlation with menses advised. Scattered colonic diverticulosis without diverticulitis or colitis. Normal appendix. Circumferential bladder wall thickening. No acute fracture. Limbus deformities along the anterior superior endplates of L4 and L5. IMPRESSION: 1. Nonobstructive bilateral subcentimeter renal calculi in the lower poles measuring no more than 3 mm. 2. Circumferential bladder wall thickening may be related to degree of underdistention or mild cystitis. This document has been electronically signed by: Gm Fitzpatrick MD on 07/21/2025 23:07:3 Coding Level of Care Code Est Pt Level 4 (16719) Complex EM visit Add On G2211 Diagnoses Hospital discharge follow-up Z09 Adrenal abnormality E27.9 Liver cyst K76.89 Hepatomegaly R16.0 Bright red blood per rectum K62.5 Left flank pain R10.9 Assessment & Plan Assessment & Plan (1) Hospital discharge follow-up: Code(s): Z09 - Encounter for follow-up examination after completed treatment for conditions other than malignant neoplasm (2) Adrenal abnormality: Code(s): E27.9 - Disorder of adrenal gland, unspecified Category: Medical (3) Liver cyst: Code(s): K76.89 - Other specified diseases of liver Category: Medical (4) Hepatomegaly: Code(s): R16.0 - Hepatomegaly, not elsewhere classified Category: Medical (5) Bright red blood per rectum: Code(s): K62.5 - Hemorrhage of anus and rectum Category: Medical (6) Left flank pain: Code(s): R10.9 - Unspecified abdominal pain Category: Medical Plan . Orders: Orders CT adrenal wo/w IV con Today E27.9 - Disorder of adrenal gland, unspecified, R16.0 - Hepatomegaly, not elsewhere classified MR abdomen wo/w con Today K76.89 - Other specified diseases of liver, R16.0 - Hepatomegaly, not elsewhere classified
[2025-07-28 13:50] VITALS: BP 118/68; PULSE 75; RESP 12; TEMP 36.4; O2SAT 98; BMI 37.2
== END 2025-07-28 14:21 | disposition home or self-care (01) ==
LOC: HO.HMCFM 13:45
PROVIDERS: PCP Nurse Practitioner Family; Visit Provider Nurse Practitioner Family
DX: Z09 Encounter for follow-up examination after completed treatment for conditions other than malignant neoplasm (principal); E27.9 Disorder of adrenal gland, unspecified; K76.89 Other specified diseases of liver; R16.0 Hepatomegaly, not elsewhere classified; K62.5 Hemorrhage of anus and rectum; R10.9 Unspecified abdominal pain

== ENCOUNTER 2025-09-14 07:57 | Outpatient (REF) | payer OTHER, SELFPAY ==
--- NOTE | ~2025-09-14 | CT_ITS ---
EXAMINATION: CT ABDOMEN PELVIS ADRENALS WITHOUT THEN WITH IV CONTRAST HISTORY: E27.9 - Disorder of adrenal gland, unspecified COMPARISON: Comparison is made to prior examinations dated 07/21/2025 and 11/04/2019. TECHNIQUE: CT scan of the abdomen was performed before and after the intravenous administration of 85 mL Omnipaque 350. Postcontrast images were obtained through the adrenal glands in the portal venous and delayed phases to calculate adrenal washout. Coronal and sagittal reformatted images were generated and reviewed. Oral contrast material was not administered per department protocol. This CT exam was performed with one or more of the following dose reduction techniques: automated exposure control, adjustment of the mA and/or kV according to patient size, use of iterative reconstruction technique. DLP: 52 mGy-cm ABDOMEN: LOWER CHEST: The visualized lung bases are clear. There is no pleural effusion. CARDIOVASCULATURE: The heart is normal in size. There is no pericardial effusion. LIVER: The liver is normal in size and contour. There are subcentimeter cysts in the left lobe. The hepatic and portal veins are patent. GALLBLADDER / BILE DUCTS: The gallbladder is unremarkable. There is no intra or extrahepatic biliary ductal dilatation. SPLEEN: The spleen is normal in size. No focal splenic lesion is identified. PANCREAS: The pancreas is unremarkable in appearance. ADRENAL GLANDS: Within normal limits. KIDNEYS/RETROPERITONEUM: No renal calculi are identified. There is no hydronephrosis. No renal masses are identified. LYMPH NODES: No abdominal or pelvic lymphadenopathy. VASCULATURE: The abdominal aorta is normal in caliber. MESENTERY/PERITONEUM: No free fluid. No masses. There is no free intraperitoneal gas. STOMACH: The stomach is collapsed, limiting evaluation. SMALL BOWEL: The visualized small bowel is normal in caliber. COLON: The visualized portion of the colon is unremarkable. BONES / SOFT TISSUES: No suspicious bony or soft tissue abnormalities. CT/CT adrenal wo/w IV con IMPRESSION: No evidence of an adrenal mass. Electronically signed by: Kevin Jensen MD 09/14/2025 09:08 AM [facility] [place]
[2025-09-14] MEDS: iohexoL 350 MG/ML 100 ML INFUS..BTL IV (08:58)
== END 2025-09-14 07:58 | disposition home or self-care (01) ==
LOC: HO.CT 07:57
PROVIDERS: PCP Nurse Practitioner Family; Visit Provider Nurse Practitioner Family
DX: E27.9 Disorder of adrenal gland, unspecified (principal); R16.0 Hepatomegaly, not elsewhere classified
CPT/HCPCS: 74170; Q9967

== ENCOUNTER → 2025-09-14 07:59 | Outpatient (BNV) | payer OTHER, SELFPAY | PROVIDERS: PCP Nurse Practitioner Family; Visit Provider Radiology Diagnostic Radiology | DX: E27.9 Disorder of adrenal gland, unspecified (principal) | CPT/HCPCS: 74170 ==